=== PATIENT | female | born 1935 | race African-American/Black ===

== ENCOUNTER 2018-11-06 10:34 | Inpatient (IN) | payer MEDICARE, MEDICAID ==
[~2018-11-06] VITALS: Ht 167.6 cm; Wt 80.7 kg
[~2018-11-06 10:34] MED LIST: DOCU-150 PO
[2018-11-06] MEDS ORDERED: ONDANSETRON HCL 4MG/2ML INJ IV STA (12:20)
[2018-11-06] MEDS ORDERED: MORPHINE SULFATE 4 MG/ML CPJ (NOT FOR IM USE) IV STA (12:20)
[2018-11-06] MEDS ORDERED: DILTIAZEM HCL 5MG/ML 5ML VIAL IV ONE (12:30)
[2018-11-06 13:00] LABS: BASOPHILS % 0.7 % (0.0-2.0); EOSINOPHILS % 1.8 % (0.0-5.0); HEMATOCRIT. 37.2 % (36.0-48.0); HEMOGLOBIN. 11.8 g/dL (12.0-16.0); LYMPHOCYTES % 27.6 % (20.0-50.0); MEAN CORPUSCULAR HEMOGLOBIN 27.1 pg (28.0-32.0); MEAN CORPUSCULAR VOLUME 85.6 fL (81.0-99.0); MEAN PLATELET VOLUME 10.7 fl (7.4-10.4); MONOCYTES % 7.4 % (2.0-8.0); NEUTROPHILS % 62.5 % (40.0-76.0); PLATELET 259 x1000/uL (130-400); RED BLOOD CELL COUNT 4.34 mill/uL (4.2-5.4)
[2018-11-06 13:07] LABS: CHLORIDE 104 mEq/L (98-107)
[2018-11-06 13:11] LABS: INR 1.1; PARTIAL THROMBOPLASTIN TIME 25.2 sec (23.4-31.0); PROTHROMBIN TIME 10.8 sec (9.6-11.0)
[2018-11-06] MEDS ORDERED: POTASSIUM CHLORIDE 20MEQ TABLET SR PO ONE (13:30)
[2018-11-06] MEDS ORDERED: FUROSEMIDE 20MG/2ML VIAL IVP ONE (13:30)
[2018-11-06] MEDS ORDERED: ONDANSETRON HCL 4MG/2ML INJ IV PRN (16:30)
[2018-11-06] MEDS ORDERED: ACETAMINOPHEN 325MG TABLET PO PRN (16:30)
[2018-11-06] MEDS ORDERED: ENOXAPARIN 40MG/0.4ML SYR SUBCUT SCH (16:30)
[2018-11-06 16:50] VITALS: BP_SYST 117; BP_DIAS 80; BP_DIAS 90
[2018-11-06] MEDS ORDERED: HYDROMORPHONE HCL/PF 2MG/ML CPJ IV PRN (17:00)
[2018-11-06 18:00] VITALS: BP 132/72
[2018-11-06] MEDS ORDERED: DEXTROSE 50% WATER 50ML SYRINGE IV PRN ×3 (18:00→19:45)
[2018-11-06] MEDS: METOPROLOL TARTRATE 25MG TABLET PO SCH (18:26)
[2018-11-06] MEDS: APIXABAN 2.5 MG TABLET PO SCH (18:26)
[2018-11-06] MEDS ORDERED: OMEPRAZOLE 20MG CAPSULE EXTENDED RELEASE PO NR (18:30)
[2018-11-06] MEDS ORDERED: MELOXICAM 7.5MG TABLET PO SCH (18:30)
[2018-11-06] MEDS ORDERED: MVI, ADULT NO.1 10 ML, FOLIC ACID 1 MG, THIAMINE HCL 100 MG in SODIUM CHLORIDE 0.9% 1,0... IV NR ×4 (19:30)
[2018-11-06 20:00] VITALS: BP 154/82
[2018-11-06] MEDS: BLOOD SUGAR DIAGNOSTIC STRIP TEST SCH (20:39)
[2018-11-06] MEDS: INSULIN LISPRO 100 UNITS/ML SUBCUT SCH (20:41)
[2018-11-06] MEDS: PREGABALIN 50 MG CAPSULE PO SCH (20:42)
[2018-11-06] MEDS ORDERED: BLOOD SUGAR DIAGNOSTIC STRIP TEST SCH (21:00)
[2018-11-06] MEDS ORDERED: INSULIN LISPRO 100 UNITS/ML SUBCUT SCH (21:00)
[2018-11-07] VITALS: BP 146/95
[2018-11-07 00:51] LABS: CREATINE KINASE MB FRACTION < 1.0 ng/mL (0.5-3.6)
[2018-11-07] MEDS: INSULIN LISPRO 100 UNITS/ML SUBCUT SCH ×5 (02:00→20:00)
[2018-11-07] MEDS: BLOOD SUGAR DIAGNOSTIC STRIP TEST SCH ×4 (02:00→20:00)
[2018-11-07 04:00] VITALS: BP 133/85
[2018-11-07] MEDS: OMEPRAZOLE 20MG CAPSULE EXTENDED RELEASE PO SCH (06:39)
[2018-11-07] MEDS: APIXABAN 2.5 MG TABLET PO SCH ×2 (06:39→17:01)
[2018-11-07 08:00] VITALS: BP 107/87
[2018-11-07] MEDS: PREGABALIN 50 MG CAPSULE PO SCH ×3 (08:34→21:09)
[2018-11-07] MEDS: METOPROLOL TARTRATE 25MG TABLET PO SCH ×2 (08:35→16:25)
[2018-11-07] MEDS: DOCUSATE SODIUM 250MG CAPSULE PO SCH (08:43)
[2018-11-07 08:44] LABS: BASOPHILS % 0.5 % (0.0-2.0); EOSINOPHILS % 4.6 % (0.0-5.0); HEMATOCRIT. 36.5 % (36.0-48.0); HEMOGLOBIN. 11.4 g/dL (12.0-16.0); LYMPHOCYTES % 39.1 % (20.0-50.0); MEAN CORPUSCULAR HEMOGLOBIN 27.1 pg (28.0-32.0); MEAN CORPUSCULAR VOLUME 86.8 fL (81.0-99.0); MEAN PLATELET VOLUME 11.3 fl (7.4-10.4); NEUTROPHILS % 49.8 % (40.0-76.0); PLATELET 278 x1000/uL (130-400); RED BLOOD CELL COUNT 4.21 mill/uL (4.2-5.4); RED CELL DISTRIBUTION WIDTH 15.3 % (11.6-14.6)
[2018-11-07] MEDS ORDERED: DOCUSATE SODIUM 100MG CAPSULE PO SCH (09:00)
[2018-11-07 09:12] LABS: CHLORIDE 113 mEq/L (98-107)
[2018-11-07 09:23] LABS: CREATINE KINASE MB FRACTION 1.1 ng/mL (0.5-3.6); HDL CHOLESTEROL 43 mg/dL (40-59)
[2018-11-07 09:24] LABS: LDL CHOLESTEROL 70 mg/dL (5-100)
[2018-11-07] MEDS ORDERED: POTASSIUM CHLORIDE INJ 40 MEQ in DEXT 5% WATER 500 ML IV NR (10:00)
[2018-11-07] MEDS: SODIUM CHL 0.45% + KCL 20MEQ/L 1,000 ML IV SCH ×2 (10:08→23:20)
[2018-11-07] MEDS ORDERED: MAGNESIUM 4 G PREMIX 100 ML IV NR (11:30)
[2018-11-07 12:00] VITALS: BP 123/68
[2018-11-07 16:00] VITALS: BP 102/84
[2018-11-07] MEDS: POTASSIUM CHLORIDE 20MEQ TABLET SR PO SCH (17:02)
[2018-11-07] MEDS ORDERED: HYDROCODONE/ACETAMINOPHEN 5/325MG TABLET PO PRN (18:45)
[2018-11-07 20:00] VITALS: BP 116/79
[2018-11-08 00:22] VITALS: BP 125/92
[2018-11-08] MEDS: INSULIN LISPRO 100 UNITS/ML SUBCUT SCH ×4 (01:50→20:00)
[2018-11-08] MEDS: BLOOD SUGAR DIAGNOSTIC STRIP TEST SCH ×4 (01:51→20:00)
[2018-11-08 04:00] VITALS: BP 105/81
[2018-11-08] MEDS: APIXABAN 2.5 MG TABLET PO SCH ×2 (06:42→17:05)
[2018-11-08] MEDS: POTASSIUM CHLORIDE 20MEQ TABLET SR PO SCH (06:42)
[2018-11-08] MEDS: OMEPRAZOLE 20MG CAPSULE EXTENDED RELEASE PO SCH (06:42)
[2018-11-08 08:00] VITALS: BP 117/86
[2018-11-08] MEDS: METOPROLOL TARTRATE 25MG TABLET PO SCH ×2 (08:59→17:05)
[2018-11-08] MEDS: DOCUSATE SODIUM 250MG CAPSULE PO SCH (08:59)
[2018-11-08] MEDS ORDERED: PREGABALIN 75MG CAPSULE PO SCH (09:00)
[2018-11-08 10:47] LABS: BASOPHILS % 0.4 % (0.0-2.0); EOSINOPHILS % 2.4 % (0.0-5.0); HEMATOCRIT. 37.5 % (36.0-48.0); HEMOGLOBIN. 11.7 g/dL (12.0-16.0); LYMPHOCYTES % 31.2 % (20.0-50.0); MEAN CORPUSCULAR HEMOGLOBIN 27.2 pg (28.0-32.0); MEAN CORPUSCULAR VOLUME 86.8 fL (81.0-99.0); MEAN PLATELET VOLUME 10.6 fl (7.4-10.4); MONOCYTES % 6.1 % (2.0-8.0); NEUTROPHILS % 59.9 % (40.0-76.0); PLATELET 299 x1000/uL (130-400); RED BLOOD CELL COUNT 4.31 mill/uL (4.2-5.4)
[2018-11-08 11:13] LABS: CHLORIDE 104 mEq/L (98-107)
[2018-11-08 12:00] VITALS: BP 100/60
[2018-11-08] MEDS ORDERED: LACTULOSE 20G/30ML UDC PO PRN (15:45)
[2018-11-08] MEDS ORDERED: NA PHOS,M-B/NA PHOS,DI-BA ENEMA 118ML PR NR (15:45)
[2018-11-08 16:00] VITALS: BP 143/91
[2018-11-08] MEDS ORDERED: ZOLPIDEM TARTRATE 5MG TABLET PO PRN (20:45)
[2018-11-08] MEDS: LORAZEPAM 2MG/ML CPJ IM PRN (22:05)
[2018-11-09] VITALS (22 sets, daily range): BP systolic 95–201; BP diastolic 46–99
[2018-11-09] MEDS: INSULIN LISPRO 100 UNITS/ML SUBCUT SCH ×4 (02:00→20:00)
[2018-11-09] MEDS: BLOOD SUGAR DIAGNOSTIC STRIP TEST SCH ×4 (02:28→16:56)
[2018-11-09] MEDS: APIXABAN 2.5 MG TABLET PO SCH ×3 (05:59→23:05)
[2018-11-09] MEDS ORDERED: SODIUM CHLORIDE 0.45% 1,000 ML IV SCH (08:00)
[2018-11-09] MEDS ORDERED: DILTIAZEM HCL 5MG/ML 5ML VIAL IV PRN ×2 (08:30→12:15)
[2018-11-09] MEDS ORDERED: DILTIAZEM HCL 5MG/ML 5ML VIAL IV NR ×2 (08:30→11:17)
[2018-11-09] MEDS: DEXT 5%/0.45% NACL 1000ML 1,000 ML IV SCH ×2 (08:46→22:07)
[2018-11-09 08:53] LABS: BG BASE EXCESS -7.3 mmol/L (-2.0-2.0); BG CARBOXYHEMOGLOBIN 1.4 % (0.5-1.5); BG DEOXYHEMOGLOBIN 7.3 % (0.0-5.0); BG HCO3 ACT 15.7 mmol/L (22.0-26.0); BG METHEMOGLOBIN 0.6 % (0.0-1.5); BG OXYGEN SATURATION 92.6 % (92.0-98.5); BG OXYHEMOGLOBIN 90.7 % (94.0-97.0); BG PCO2 25.6 mmHg (35.0-45.0); BG PH 7.405 (7.350-7.450); BG PO2 66.9 mmHg (75.0-100.0); BG SAMPLE SITE LEFT BRACHIAL; BG TOTAL HEMOGLOBIN 13.3 g/dL (12.0-18.0); BG VENT MODE ROOM AIR
[2018-11-09] MEDS: METOPROLOL TARTRATE 25MG TABLET PO SCH ×3 (09:00→17:00)
[2018-11-09] MEDS: FAMOTIDINE 20MG TABLET PO SCH ×3 (09:00→17:00)
[2018-11-09] MEDS: DOCUSATE SODIUM 250MG CAPSULE PO SCH ×2 (09:00→09:01)
[2018-11-09 11:11] LABS: BASOPHILS % 0.4 % (0.0-2.0); EOSINOPHILS % 0.8 % (0.0-5.0); HEMATOCRIT. 38.5 % (36.0-48.0); HEMOGLOBIN. 12.1 g/dL (12.0-16.0); LYMPHOCYTES % 14.4 % (20.0-50.0); MEAN CORPUSCULAR HEMOGLOBIN 27.2 pg (28.0-32.0); MEAN CORPUSCULAR VOLUME 86.4 fL (81.0-99.0); MEAN PLATELET VOLUME 11.5 fl (7.4-10.4); MONOCYTES % 4.4 % (2.0-8.0); PLATELET 310 x1000/uL (130-400); RED BLOOD CELL COUNT 4.45 mill/uL (4.2-5.4); RED CELL DISTRIBUTION WIDTH 15.1 % (11.6-14.6)
[2018-11-09] MEDS ORDERED: IPRATROPIUM/ALBUTEROL 0.5-3(2.5)MG/3ML NEB HHN SCH (12:00)
[2018-11-09 12:01] LABS: ETHANOL BLOOD < 10 mg/dL; T4 FREE 1.59 ng/dL (0.76-1.46)
[2018-11-09 12:06] LABS: FOLIC ACID (FOLATE) SERUM >20 ng/mL ng/mL (>5.38)
[2018-11-09 12:16] LABS: VITAMIN B12 SERUM >2000 pg/mL pg/mL (211-911)
[2018-11-09] MEDS ORDERED: DILTIAZEM HCL 125 MG in DEXT 5% WATER 100 ML IV PRN (12:30)
[2018-11-09] MEDS: BUDESONIDE 0.25MG/2ML NEB HHN SCH ×2 (13:20→20:50)
[2018-11-09] MEDS ORDERED: DILTIAZEM HCL 125 MG in DEXTROSE 5% WATER 125 ML IV SCH (13:30)
[2018-11-09] MEDS ORDERED: NALOXONE HCL 0.4 MG/ML 1ML VIAL IV NR ×2 (13:45→14:00)
[2018-11-09] MEDS ORDERED: IPRATROPIUM BROMIDE (0.02%) 0.5MG/2.5ML NEB ONE (14:08)
[2018-11-09] MEDS ORDERED: IPRATROPIUM BROMIDE (0.02%) 0.5MG/2.5ML NEB HHN ONE (14:15)
[2018-11-09 14:36] LABS: BG BASE EXCESS -5.4 mmol/L (-2.0-2.0); BG CARBOXYHEMOGLOBIN 1.4 % (0.5-1.5); BG DEOXYHEMOGLOBIN 5.8 % (0.0-5.0); BG FRACTION INSPIRED OXYGEN 28; BG HCO3 ACT 18.9 mmol/L (22.0-26.0); BG METHEMOGLOBIN 0.8 % (0.0-1.5); BG OXYGEN SATURATION 94.1 % (92.0-98.5); BG PCO2 33.2 mmHg (35.0-45.0); BG PH 7.374 (7.350-7.450); BG PO2 77.6 mmHg (75.0-100.0); BG SAMPLE SITE LEFT BRACHIAL; BG TOTAL HEMOGLOBIN 12.6 g/dL (12.0-18.0); BG VENT MODE NASAL CANNULA
[2018-11-09 15:21] LABS: *AMPHETAMINES SCREEN URINE NEGATIVE (NEGATIVE); *BARBITURATES SCREEN URINE NEGATIVE (NEGATIVE); *BENZODIAZEPINES SCREEN URINE NEGATIVE (NEGATIVE); *COCAINE SCREEN URINE NEGATIVE (NEGATIVE); METHADONE URINE SCREEN NEGATIVE (NEGATIVE)
[2018-11-09 15:22] LABS: CANNABINOID URINE SCREEN NEGATIVE (NEGATIVE); OPIATES URINE SCREEN PRESUMTIVE POSITIVE (NEGATIVE); PHENCYCLIDINE URINE SCREEN NEGATIVE (NEGATIVE)
[2018-11-09] MEDS: IPRATROPIUM/ALBUTEROL 0.5-3(2.5)MG/3ML NEB HHN PRN (16:42)
[2018-11-09 17:00] LABS: CHLORIDE 102 mEq/L (98-107)
[2018-11-09] MEDS ORDERED: FUROSEMIDE 40MG/4ML VIAL IVP NR (18:30)
[2018-11-09] MEDS ORDERED: METHYLPREDNISOLONE SOD SUCC 40 MG/ML VIAL IV NR (18:30)
[2018-11-09] MEDS: LACTULOSE 20G/30ML UDC PO SCH (20:58)
[2018-11-10] VITALS (12 sets, daily range): BP systolic 125–173; BP diastolic 58–99
[2018-11-10] MEDS: BLOOD SUGAR DIAGNOSTIC STRIP TEST SCH ×4 (02:00→21:00)
[2018-11-10] MEDS: INSULIN LISPRO 100 UNITS/ML SUBCUT SCH ×5 (03:04→21:00)
[2018-11-10 04:40] LABS: CLARITY URINE CLOUDY (CLEAR); COLOR URINE YELLOW (YELLOW); KETONES URINE NEGATIVE (NEGATIVE); LEUKOCYTE ESTERASE URINE 1+ (NEGATIVE); NITRITE URINE NEGATIVE (NEGATIVE); OCCULT BLOOD URINE 2+ (NEGATIVE); PROTEIN URINE NEGATIVE (NEGATIVE); SPECIFIC GRAVITY URINE 1.007 (1.005-1.030); UROBILINOGEN URINE 0.2 E.U./dL (0.2-1.0)
[2018-11-10] MEDS: LACTULOSE 20G/30ML UDC PO SCH ×2 (06:22→13:34)
[2018-11-10] MEDS: APIXABAN 2.5 MG TABLET PO SCH (06:22)
[2018-11-10] MEDS: BUDESONIDE 0.25MG/2ML NEB HHN SCH ×2 (07:50→21:39)
[2018-11-10] MEDS: DEXT 5%/0.45% NACL 1000ML 1,000 ML IV SCH (09:05)
[2018-11-10] MEDS: FAMOTIDINE 20MG TABLET PO SCH ×2 (09:06→17:00)
[2018-11-10] MEDS: DOCUSATE SODIUM 250MG CAPSULE PO SCH (09:06)
[2018-11-10] MEDS: METOPROLOL TARTRATE 25MG TABLET PO SCH ×2 (10:08→17:00)
[2018-11-10 10:20] LABS: BASOPHILS % 0.4 % (0.0-2.0); HEMOGLOBIN. 12.4 g/dL (12.0-16.0); LYMPHOCYTES % 10.2 % (20.0-50.0); MEAN CORPUSCULAR HEMOGLOBIN 27.3 pg (28.0-32.0); MEAN CORPUSCULAR VOLUME 85.7 fL (81.0-99.0); MEAN PLATELET VOLUME 11.1 fl (7.4-10.4); MONOCYTES % 3.4 % (2.0-8.0); PLATELET 311 x1000/uL (130-400); RED BLOOD CELL COUNT 4.55 mill/uL (4.2-5.4); RED CELL DISTRIBUTION WIDTH 15.1 % (11.6-14.6)
[2018-11-10 10:25] LABS: CHLORIDE 101 mEq/L (98-107)
[2018-11-10] MEDS ORDERED: PIPERACILLIN/TAZ 3.375G PREMIX 50 ML IV NR (11:00)
[2018-11-10 13:17] LABS: HEPATITIS B SURFACE ANTIGEN NEGATIVE
[2018-11-10] MEDS: IPRATROPIUM/ALBUTEROL 0.5-3(2.5)MG/3ML NEB HHN PRN (13:19)
[2018-11-10 13:47] LABS: HEPATITIS A AB IGM NEGATIVE (NEGATIVE)
[2018-11-10 14:28] LABS: INR 1.3; PARTIAL THROMBOPLASTIN TIME 25.5 sec (23.4-31.0); PROTHROMBIN TIME 13.4 sec (9.6-11.0)
[2018-11-10] MEDS: APIXABAN 5 MG TABLET PO SCH (17:00)
[2018-11-11] VITALS (10 sets, daily range): BP systolic 131–162; BP diastolic 72–99
[2018-11-11] MEDS: APIXABAN 5 MG TABLET PO SCH ×2 (00:03→14:35)
[2018-11-11] MEDS: LORAZEPAM 2MG/ML CPJ IM PRN ×2 (00:57→18:13)
[2018-11-11] MEDS: DEXT 5%/0.45% NACL 1000ML 1,000 ML IV SCH ×2 (01:00→15:02)
[2018-11-11] MEDS: BLOOD SUGAR DIAGNOSTIC STRIP TEST SCH ×4 (05:50→21:00)
[2018-11-11] MEDS: INSULIN LISPRO 100 UNITS/ML SUBCUT SCH ×4 (05:50→23:34)
[2018-11-11 06:33] LABS: BASOPHILS % 0.4 % (0.0-2.0); EOSINOPHILS % 0.2 % (0.0-5.0); HEMATOCRIT. 37.6 % (36.0-48.0); HEMOGLOBIN. 12.2 g/dL (12.0-16.0); MEAN CORPUSCULAR VOLUME 86.5 fL (81.0-99.0); MEAN PLATELET VOLUME 10.8 fl (7.4-10.4); MONOCYTES % 6.9 % (2.0-8.0); NEUTROPHILS % 68.5 % (40.0-76.0); PLATELET 306 x1000/uL (130-400); RED BLOOD CELL COUNT 4.35 mill/uL (4.2-5.4); RED CELL DISTRIBUTION WIDTH 15.2 % (11.6-14.6)
[2018-11-11 06:50] LABS: CHLORIDE 103 mEq/L (98-107)
[2018-11-11] MEDS ORDERED: LACTULOSE 20G/30ML UDC PO NR (08:15)
[2018-11-11 08:41] LABS: BG BASE EXCESS 0.4 mmol/L (-2.0-2.0); BG CARBOXYHEMOGLOBIN 0.9 % (0.5-1.5); BG DEOXYHEMOGLOBIN 7.2 % (0.0-5.0); BG FRACTION INSPIRED OXYGEN 21; BG HCO3 ACT 25.9 mmol/L (22.0-26.0); BG METHEMOGLOBIN 0.2 % (0.0-1.5); BG OXYGEN SATURATION 92.7 % (92.0-98.5); BG OXYHEMOGLOBIN 91.7 % (94.0-97.0); BG PCO2 45.3 mmHg (35.0-45.0); BG PH 7.375 (7.350-7.450); BG PO2 68.5 mmHg (75.0-100.0); BG SAMPLE SITE RIGHT RADIAL; BG VENT MODE ROOM AIR
[2018-11-11] MEDS ORDERED: GENTAMICIN SULF 40MG/ML 2ML VIAL ONE (09:16)
[2018-11-11] MEDS ORDERED: FENTANYL CITRATE/PF 50MCG/ML 2ML VIAL ONE ×2 (09:16→10:33)
[2018-11-11] MEDS ORDERED: MIDAZOLAM HCL 2 MG/2 ML VIAL ONE (09:16)
[2018-11-11] MEDS ORDERED: IOHEXOL-300 100 ML BOTTLE ONE (09:17)
[2018-11-11] MEDS ORDERED: LIDOCAINE HCL 1% 20ML VIAL (Pyxis) INJ ONE (09:18)
[2018-11-11] MEDS ORDERED: GENTAMICIN/NS IRRIGATION 500 ML IR ONE (09:18)
[2018-11-11] MEDS ORDERED: CEFAZOLIN 1000MG PREMIX 100 ML IV ONE (09:19)
[2018-11-11] MEDS ORDERED: DIPHENHYDRAMINE 50MG/ML VIAL ONE (10:30)
[2018-11-11] MEDS ORDERED: HYDROCODONE/ACETAMINOPHEN 5/325MG TABLET PO PRN (11:30)
[2018-11-11] MEDS: BUDESONIDE 0.25MG/2ML NEB HHN SCH ×2 (12:21→21:30)
[2018-11-11] MEDS ORDERED: NALOXONE HCL 0.4 MG/ML 1ML VIAL IV SCH (14:00)
[2018-11-11] MEDS: DOCUSATE SODIUM 250MG CAPSULE PO SCH (14:35)
[2018-11-11] MEDS: PIPERACILLIN/TAZ 3.375G PREMIX 50 ML IV SCH ×2 (14:36→17:53)
[2018-11-11] MEDS: METOPROLOL TARTRATE 25MG TABLET PO SCH ×2 (14:37→17:52)
[2018-11-11] MEDS: FAMOTIDINE 20MG TABLET PO SCH ×2 (14:37→17:52)
[2018-11-11 14:44] LABS: CREATINE KINASE 139 IU/L (26-192)
[2018-11-12] VITALS (10 sets, daily range): BP systolic 138–164; BP diastolic 75–104
[2018-11-12] MEDS: DEXT 5%/0.45% NACL 1000ML 1,000 ML IV SCH ×2 (02:33→15:43)
[2018-11-12] MEDS: LORAZEPAM 2MG/ML CPJ IM PRN (02:33)
[2018-11-12] MEDS: PIPERACILLIN/TAZ 3.375G PREMIX 50 ML IV SCH ×3 (02:33→17:41)
[2018-11-12 06:19] LABS: BASOPHILS % 1.1 % (0.0-2.0); EOSINOPHILS % 2.4 % (0.0-5.0); HEMATOCRIT. 34.7 % (36.0-48.0); HEMOGLOBIN. 11.1 g/dL (12.0-16.0); LYMPHOCYTES % 23.4 % (20.0-50.0); MEAN CORPUSCULAR HEMOGLOBIN 27.6 pg (28.0-32.0); MEAN CORPUSCULAR VOLUME 86.1 fL (81.0-99.0); MEAN PLATELET VOLUME 10.5 fl (7.4-10.4); MONOCYTES % 9.5 % (2.0-8.0); NEUTROPHILS % 63.6 % (40.0-76.0); PLATELET 257 x1000/uL (130-400); RED BLOOD CELL COUNT 4.03 mill/uL (4.2-5.4); RED CELL DISTRIBUTION WIDTH 15.1 % (11.6-14.6)
[2018-11-12 06:33] LABS: CHLORIDE 105 mEq/L (98-107)
[2018-11-12] MEDS: BLOOD SUGAR DIAGNOSTIC STRIP TEST SCH ×4 (06:51→21:00)
[2018-11-12] MEDS ORDERED: BUDESONIDE 0.5MG/2ML NEB ONE ×2 (07:46→12:26)
[2018-11-12] MEDS: BUDESONIDE 0.25MG/2ML NEB HHN SCH ×2 (09:00→20:16)
[2018-11-12] MEDS ORDERED: DILTIAZEM HCL 5MG/ML 5ML VIAL IV NR (10:15)
[2018-11-12] MEDS ORDERED: DILTIAZEM HCL 5MG/ML 5ML VIAL IV PRN (10:15)
[2018-11-12] MEDS: DOCUSATE SODIUM 250MG CAPSULE PO SCH (10:15)
[2018-11-12] MEDS: FAMOTIDINE 20MG TABLET PO SCH (10:16)
[2018-11-12] MEDS: IPRATROPIUM/ALBUTEROL 0.5-3(2.5)MG/3ML NEB HHN PRN ×2 (10:26→12:54)
[2018-11-12] MEDS: METOPROLOL TARTRATE 25MG TABLET PO SCH ×2 (10:38→17:18)
[2018-11-12] MEDS: DILTIAZEM HCL 60MG TABLET PO SCH ×3 (10:39→22:44)
[2018-11-12] MEDS: APIXABAN 2.5 MG TABLET PO SCH ×2 (10:41→17:19)
[2018-11-12] MEDS: INSULIN LISPRO 100 UNITS/ML SUBCUT SCH ×4 (10:43→21:00)
[2018-11-12] MEDS: LACTULOSE 20G/30ML UDC PO SCH ×2 (12:49→22:44)
[2018-11-12] MEDS: MUPIROCIN 2% OINT 22GM NS SCH (21:00)
[2018-11-13] VITALS (8 sets, daily range): BP systolic 134–164; BP diastolic 74–89
[2018-11-13] MEDS: PIPERACILLIN/TAZ 3.375G PREMIX 50 ML IV SCH ×3 (02:00→17:50)
[2018-11-13] MEDS: DEXT 5%/0.45% NACL 1000ML 1,000 ML IV SCH ×2 (05:16→17:51)
[2018-11-13] MEDS: DILTIAZEM HCL 60MG TABLET PO SCH ×3 (05:24→15:10)
[2018-11-13] MEDS: LACTULOSE 20G/30ML UDC PO SCH ×2 (05:24→14:00)
[2018-11-13] MEDS: BLOOD SUGAR DIAGNOSTIC STRIP TEST SCH ×3 (05:25→17:31)
[2018-11-13] MEDS: INSULIN LISPRO 100 UNITS/ML SUBCUT SCH ×3 (05:25→17:31)
[2018-11-13] MEDS ORDERED: FAMOTIDINE 20MG TABLET PO SCH (09:00)
[2018-11-13] MEDS: DOCUSATE SODIUM 250MG CAPSULE PO SCH (09:00)
[2018-11-13] MEDS: MUPIROCIN 2% OINT 22GM NS SCH (09:26)
[2018-11-13] MEDS: APIXABAN 2.5 MG TABLET PO SCH ×2 (09:27→17:50)
[2018-11-13] MEDS: METOPROLOL TARTRATE 25MG TABLET PO SCH ×2 (09:27→17:50)
[2018-11-13 15:42] LABS: CHLORIDE 102 mEq/L (98-107)
[2018-11-13 15:45] LABS: BASOPHILS % 0.8 % (0.0-2.0); EOSINOPHILS % 2.9 % (0.0-5.0); HEMATOCRIT. 37.5 % (36.0-48.0); HEMOGLOBIN. 11.7 g/dL (12.0-16.0); MEAN CORPUSCULAR HEMOGLOBIN 27.1 pg (28.0-32.0); MEAN CORPUSCULAR VOLUME 87.1 fL (81.0-99.0); MEAN PLATELET VOLUME 10.6 fl (7.4-10.4); MONOCYTES % 8.9 % (2.0-8.0); NEUTROPHILS % 65.4 % (40.0-76.0); PLATELET 287 x1000/uL (130-400); RED CELL DISTRIBUTION WIDTH 15.2 % (11.6-14.6)
== END 2018-11-13 20:10 | DRG 242 ==
LOC: ER 10:45 → 8WST 13:31 → ENRESERV 15:31 → 3WST 11-09 13:30
PROVIDERS: ADMIT Internal Medicine Geriatric Medicine; ATTEND Internal Medicine Geriatric Medicine
PROC: 0JH604Z Insertion of Pacemaker, Single Chamber into Chest Subcutaneous Tissue and Fascia, Open Approach (ICD-10-PCS; principal; 2018-11-11)
PROC: 02HK3JZ Insertion of Pacemaker Lead into Right Ventricle, Percutaneous Approach (ICD-10-PCS; 2018-11-11)
PROC: B5171ZZ Fluoroscopy of Left Subclavian Vein using Low Osmolar Contrast (ICD-10-PCS; 2018-11-11)
DX: I49.5 Sick sinus syndrome (principal); G92 Toxic encephalopathy; I50.21 Acute systolic (congestive) heart failure; I48.1 Persistent atrial fibrillation; E44.1 Mild protein-calorie malnutrition; E72.20 Disorder of urea cycle metabolism, unspecified; E87.1 Hypo-osmolality and hyponatremia; K80.10 Calculus of gallbladder with chronic cholecystitis without obstruction; N17.9 Acute kidney failure, unspecified; M48.00 Spinal stenosis, site unspecified; E87.6 Hypokalemia; E83.42 Hypomagnesemia; E78.00 Pure hypercholesterolemia, unspecified; E87.5 Hyperkalemia; I11.0 Hypertensive heart disease with heart failure; I25.10 Atherosclerotic heart disease of native coronary artery without angina pectoris; E11.36 Type 2 diabetes mellitus with diabetic cataract; I44.30 Unspecified atrioventricular block; J45.909 Unspecified asthma, uncomplicated; K72.90 Hepatic failure, unspecified without coma; Z96.659 Presence of unspecified artificial knee joint; E11.51 Type 2 diabetes mellitus with diabetic peripheral angiopathy without gangrene; D63.8 Anemia in other chronic diseases classified elsewhere; M16.11 Unilateral primary osteoarthritis, right hip; G90.8 Other disorders of autonomic nervous system; Z88.1 Allergy status to other antibiotic agents; Z88.2 Allergy status to sulfonamides; Z90.710 Acquired absence of both cervix and uterus; Z98.42 Cataract extraction status, left eye; Z98.41 Cataract extraction status, right eye; Z91.041 Radiographic dye allergy status; Z91.013 Allergy to seafood; Z68.28 Body mass index [BMI] 28.0-28.9, adult; Z86.73 Personal history of transient ischemic attack (TIA), and cerebral infarction without residual deficits; Z79.01 Long term (current) use of anticoagulants
CPT/HCPCS: 33207; 36415; 36600; 71045; 72100; 73502; 75820; 76700; 78227; 80048; 80061; 80076; 80305; 80320; 82140; 82248; 82375; 82550; 82553; 82607; 82746; 82805; 82962; 83036; 83735; 83880; 84439; 84443; 84481; 84484; 86705; 86709; 86803; 87340; 92610; 93005; 93306; 93880; 93970; 94640; 96374; 97162; 97164; 99285; A6261; A9537; C1786; C1892; C1893; C1898; J0690; J1170; J1200; J1580; J1815; J1940; J2060; J2250; J2270; J2310; J2405; J2543; J2920; J3010; J3411; J3475; J3480; J3490; J7030; J7050; J7060; J7620; J7626; L3670; Q9967; G0480

== ENCOUNTER 2018-11-13 20:10 | Inpatient (IN) | payer MEDICARE, MEDICAID ==
[~2018-11-13] VITALS: Ht 167 cm; Wt 83.6 kg
[2018-11-13 20:10] VITALS: BP 140/89
[2018-11-13 20:15] VITALS: BP 140/89
[2018-11-13] MEDS ORDERED: ONDANSETRON HCL 4MG/2ML INJ IV PRN (22:15)
[2018-11-13] MEDS ORDERED: LORAZEPAM 2MG/ML CPJ IM PRN (22:15)
[2018-11-13] MEDS ORDERED: ACETAMINOPHEN 325MG TABLET PO PRN (22:15)
[2018-11-13] MEDS ORDERED: IPRATROPIUM/ALBUTEROL 0.5-3(2.5)MG/3ML NEB HHN PRN (22:15)
[2018-11-13] MEDS ORDERED: DEXTROSE 50% WATER 50ML SYRINGE IV PRN ×2 (22:15)
[2018-11-13] MEDS ORDERED: HYDROCODONE/ACETAMINOPHEN 5/325MG TABLET PO PRN (22:15)
[2018-11-13] MEDS ORDERED: DILTIAZEM HCL 5MG/ML 5ML VIAL IV PRN (22:45)
[2018-11-13] MEDS ORDERED: ZOLPIDEM TARTRATE 5MG TABLET PO PRN (23:00)
[2018-11-14] MEDS: MUPIROCIN 2% OINT 22GM NS SCH ×3 (00:40→21:15)
[2018-11-14] MEDS: DILTIAZEM HCL 60MG TABLET PO SCH ×4 (00:45→17:21)
[2018-11-14] MEDS: BLOOD SUGAR DIAGNOSTIC STRIP TEST SCH ×5 (00:45→21:16)
[2018-11-14] MEDS: INSULIN LISPRO 100 UNITS/ML SUBCUT SCH ×5 (00:45→21:34)
[2018-11-14] MEDS: LACTULOSE 20G/30ML UDC PO SCH ×4 (00:46→21:17)
[2018-11-14] MEDS: DEXT 5%/0.45% NACL 1000ML 1,000 ML IV SCH ×3 (00:46→21:10)
[2018-11-14] MEDS: PIPERACILLIN/TAZ 3.375G PREMIX 50 ML IV SCH ×3 (02:56→17:14)
[2018-11-14 07:46] LABS: BASOPHILS % 0.7 % (0.0-2.0); EOSINOPHILS % 2.3 % (0.0-5.0); HEMATOCRIT. 42.3 % (36.0-48.0); HEMOGLOBIN. 13.3 g/dL (12.0-16.0); LYMPHOCYTES % 25.1 % (20.0-50.0); MEAN CORPUSCULAR HEMOGLOBIN 27.2 pg (28.0-32.0); MEAN CORPUSCULAR VOLUME 86.4 fL (81.0-99.0); MEAN PLATELET VOLUME 10.5 fl (7.4-10.4); MONOCYTES % 7.9 % (2.0-8.0); PLATELET 320 x1000/uL (130-400)
[2018-11-14 07:56] LABS: CHLORIDE 97 mEq/L (98-107)
[2018-11-14 07:58] VITALS: BP 122/89
[2018-11-14] MEDS ORDERED: PREGABALIN 75MG CAPSULE PO SCH ×2 (09:00)
[2018-11-14] MEDS: DOCUSATE SODIUM 250MG CAPSULE PO SCH (09:05)
[2018-11-14] MEDS: METOPROLOL TARTRATE 25MG TABLET PO SCH ×2 (09:06→21:16)
[2018-11-14] MEDS: FAMOTIDINE 20MG TABLET PO SCH (09:06)
[2018-11-14] MEDS: APIXABAN 2.5 MG TABLET PO SCH ×2 (09:07→17:14)
[2018-11-14] MEDS: POTASSIUM CHLORIDE 20MEQ TABLET SR PO SCH ×2 (10:24→21:16)
[2018-11-14] MEDS ORDERED: MAGNESIUM 2 G PREMIX 50 ML IV NR (15:00)
[2018-11-14 20:00] VITALS: BP 103/77
[2018-11-14 22:10] VITALS: BP 158/90
[2018-11-15] MEDS: DILTIAZEM HCL 60MG TABLET PO SCH ×5 (00:42→23:47)
[2018-11-15] MEDS: PIPERACILLIN/TAZ 3.375G PREMIX 50 ML IV SCH ×3 (01:02→17:00)
[2018-11-15] MEDS: LACTULOSE 20G/30ML UDC PO SCH ×2 (06:00→13:34)
[2018-11-15] MEDS: BLOOD SUGAR DIAGNOSTIC STRIP TEST SCH ×4 (06:09→21:00)
[2018-11-15] MEDS: INSULIN LISPRO 100 UNITS/ML SUBCUT SCH ×4 (06:25→21:28)
[2018-11-15 07:41] VITALS: BP 141/72
[2018-11-15 07:56] LABS: CHLORIDE 97 mEq/L (98-107)
[2018-11-15 08:24] LABS: PHOSPHORUS 2.5 mg/dL (2.5-4.9)
[2018-11-15] MEDS: POTASSIUM CHLORIDE 20MEQ TABLET SR PO SCH ×2 (08:40→21:09)
[2018-11-15] MEDS: FAMOTIDINE 20MG TABLET PO SCH (08:40)
[2018-11-15] MEDS: METOPROLOL TARTRATE 25MG TABLET PO SCH ×2 (08:40→21:09)
[2018-11-15] MEDS: DOCUSATE SODIUM 250MG CAPSULE PO SCH (08:41)
[2018-11-15] MEDS: APIXABAN 2.5 MG TABLET PO SCH ×2 (08:41→16:36)
[2018-11-15] MEDS: MUPIROCIN 2% OINT 22GM NS SCH ×2 (09:00→21:29)
[2018-11-15] MEDS: DEXT 5%/0.45% NACL 1000ML 1,000 ML IV SCH (14:42)
[2018-11-15] MEDS ORDERED: GLIMEPIRIDE 1MG TABLET PO NR (17:00)
[2018-11-15 20:00] VITALS: BP 116/57
[2018-11-16] MEDS: PIPERACILLIN/TAZ 3.375G PREMIX 50 ML IV SCH ×3 (02:30→17:33)
[2018-11-16] MEDS: DEXT 5%/0.45% NACL 1000ML 1,000 ML IV SCH (04:46)
[2018-11-16] MEDS: INSULIN LISPRO 100 UNITS/ML SUBCUT SCH ×4 (06:30→22:07)
[2018-11-16] MEDS: DILTIAZEM HCL 60MG TABLET PO SCH ×4 (06:37→23:04)
[2018-11-16] MEDS: GLIMEPIRIDE 1MG TABLET PO SCH (06:37)
[2018-11-16] MEDS: BLOOD SUGAR DIAGNOSTIC STRIP TEST SCH ×4 (06:38→21:00)
[2018-11-16 07:31] LABS: CHLORIDE 100 mEq/L (98-107)
[2018-11-16 07:41] LABS: PHOSPHORUS 2.5 mg/dL (2.5-4.9)
[2018-11-16 07:53] LABS: BASOPHILS % 0.3 % (0.0-2.0); EOSINOPHILS % 1.7 % (0.0-5.0); HEMATOCRIT. 37.8 % (36.0-48.0); HEMOGLOBIN. 11.9 g/dL (12.0-16.0); LYMPHOCYTES % 20.8 % (20.0-50.0); MEAN CORPUSCULAR HEMOGLOBIN 26.9 pg (28.0-32.0); MEAN CORPUSCULAR VOLUME 85.4 fL (81.0-99.0); MEAN PLATELET VOLUME 10.1 fl (7.4-10.4); MONOCYTES % 7.3 % (2.0-8.0); NEUTROPHILS % 69.9 % (40.0-76.0); PLATELET 312 x1000/uL (130-400); RED BLOOD CELL COUNT 4.43 mill/uL (4.2-5.4); RED CELL DISTRIBUTION WIDTH 15.2 % (11.6-14.6)
[2018-11-16 07:59] VITALS: BP 131/80
[2018-11-16] MEDS: DOCUSATE SODIUM 250MG CAPSULE PO SCH ×2 (08:20→08:30)
[2018-11-16] MEDS: POTASSIUM CHLORIDE 20MEQ TABLET SR PO SCH ×2 (08:20→21:44)
[2018-11-16] MEDS: APIXABAN 2.5 MG TABLET PO SCH ×2 (08:20→17:33)
[2018-11-16] MEDS: METOPROLOL TARTRATE 25MG TABLET PO SCH ×2 (08:21→21:43)
[2018-11-16] MEDS: FAMOTIDINE 20MG TABLET PO SCH (08:21)
[2018-11-16] MEDS: MUPIROCIN 2% OINT 22GM NS SCH ×2 (08:26→21:44)
[2018-11-16] MEDS ORDERED: APIXABAN 2.5 MG TABLET PO SCH (09:00)
[2018-11-16 20:00] VITALS: BP 127/66
[2018-11-17] MEDS: PIPERACILLIN/TAZ 3.375G PREMIX 50 ML IV SCH ×3 (02:23→18:18)
[2018-11-17] MEDS: BLOOD SUGAR DIAGNOSTIC STRIP TEST SCH ×4 (06:30→21:01)
[2018-11-17] MEDS: INSULIN LISPRO 100 UNITS/ML SUBCUT SCH ×4 (06:30→21:08)
[2018-11-17] MEDS: GLIMEPIRIDE 1MG TABLET PO SCH (06:51)
[2018-11-17] MEDS: DILTIAZEM HCL 60MG TABLET PO SCH ×3 (06:52→17:44)
[2018-11-17 07:59] VITALS: BP 114/90
[2018-11-17] MEDS: DOCUSATE SODIUM 250MG CAPSULE PO SCH (08:53)
[2018-11-17] MEDS: MUPIROCIN 2% OINT 22GM NS SCH ×2 (08:53→21:00)
[2018-11-17] MEDS: POTASSIUM CHLORIDE 20MEQ TABLET SR PO SCH ×2 (08:54→21:00)
[2018-11-17] MEDS: METOPROLOL TARTRATE 25MG TABLET PO SCH ×2 (08:54→21:00)
[2018-11-17] MEDS: FAMOTIDINE 20MG TABLET PO SCH (08:54)
[2018-11-17] MEDS: APIXABAN 2.5 MG TABLET PO SCH ×2 (08:54→17:43)
[2018-11-17] MEDS ORDERED: DOXA1TAB2 PO (16:57)
[2018-11-17] MEDS ORDERED: LOSA50TA41 MT (16:57)
[2018-11-17] MEDS ORDERED: METF-416 MT (16:57)
[2018-11-17] MEDS ORDERED: APIX2.5T MT (16:57)
[2018-11-17] MEDS ORDERED: ALLO100T MT (16:57)
[2018-11-17] MEDS ORDERED: DILT120C11 MT (16:57)
[2018-11-17] MEDS ORDERED: SAXA5TAB MT (16:57)
[2018-11-17] MEDS ORDERED: GLIM2TAB2 PO (16:57)
[2018-11-17] MEDS ORDERED: SPIR25TA MT (16:57)
[2018-11-17 20:00] VITALS: BP 123/64
[2018-11-18] MEDS: DILTIAZEM HCL 60MG TABLET PO SCH ×5 (00:03→23:12)
[2018-11-18] MEDS: PIPERACILLIN/TAZ 3.375G PREMIX 50 ML IV SCH ×3 (01:00→17:05)
[2018-11-18] MEDS: INSULIN LISPRO 100 UNITS/ML SUBCUT SCH ×4 (06:28→22:08)
[2018-11-18] MEDS: BLOOD SUGAR DIAGNOSTIC STRIP TEST SCH ×4 (06:28→21:53)
[2018-11-18] MEDS: GLIMEPIRIDE 1MG TABLET PO SCH (06:28)
[2018-11-18 08:00] VITALS: BP 161/91
[2018-11-18] MEDS: LACTULOSE 20G/30ML UDC PO PRN ×2 (08:41→22:02)
[2018-11-18] MEDS: DOCUSATE SODIUM 250MG CAPSULE PO SCH (08:42)
[2018-11-18] MEDS: FAMOTIDINE 20MG TABLET PO SCH (08:42)
[2018-11-18] MEDS: APIXABAN 2.5 MG TABLET PO SCH ×2 (08:42→16:41)
[2018-11-18] MEDS: METOPROLOL TARTRATE 25MG TABLET PO SCH ×2 (08:42→21:53)
[2018-11-18] MEDS: POTASSIUM CHLORIDE 20MEQ TABLET SR PO SCH ×2 (08:42→21:53)
[2018-11-18] MEDS ORDERED: CLONIDINE 0.2MG TABLET PO PRN (15:30)
[2018-11-18 20:00] VITALS: BP 126/78
[2018-11-19] MEDS: INSULIN LISPRO 100 UNITS/ML SUBCUT SCH ×2 (06:30→12:25)
[2018-11-19] MEDS: BLOOD SUGAR DIAGNOSTIC STRIP TEST SCH ×2 (06:43→11:26)
[2018-11-19] MEDS: DILTIAZEM HCL 60MG TABLET PO SCH ×2 (06:44→12:09)
[2018-11-19] MEDS ORDERED: GLIMEPIRIDE 1MG TABLET PO SCH (07:00)
[2018-11-19 07:18] LABS: CHLORIDE 104 mEq/L (98-107)
[2018-11-19 07:21] LABS: HEMATOCRIT. 41.8 % (36.0-48.0); HEMOGLOBIN. 13.3 g/dL (12.0-16.0); LYMPHOCYTES % 31.3 % (20.0-50.0); MEAN CORPUSCULAR HEMOGLOBIN 27.2 pg (28.0-32.0); MEAN CORPUSCULAR VOLUME 85.4 fL (81.0-99.0); MEAN PLATELET VOLUME 9.9 fl (7.4-10.4); NEUTROPHILS % 55.7 % (40.0-76.0); PLATELET 339 x1000/uL (130-400); RED BLOOD CELL COUNT 4.89 mill/uL (4.2-5.4); RED CELL DISTRIBUTION WIDTH 15.1 % (11.6-14.6)
[2018-11-19 08:04] VITALS: BP 154/96
[2018-11-19] MEDS: APIXABAN 2.5 MG TABLET PO SCH (08:58)
[2018-11-19] MEDS: FAMOTIDINE 20MG TABLET PO SCH (08:58)
[2018-11-19] MEDS: DOCUSATE SODIUM 250MG CAPSULE PO SCH (08:58)
[2018-11-19] MEDS: METOPROLOL TARTRATE 25MG TABLET PO SCH (08:58)
[2018-11-19] MEDS ORDERED: ATORVASTATIN CALCIUM 10MG TABLET PO SCH (09:00)
[2018-11-19 10:30] VITALS: BP 134/80
== END 2018-11-19 15:25 | disposition home health service (06) | DRG 91 ==
PROVIDERS: ADMIT Psychiatry & Neurology Neurology; ATTEND Internal Medicine Geriatric Medicine
DX: G92 Toxic encephalopathy (principal); I50.21 Acute systolic (congestive) heart failure; E87.1 Hypo-osmolality and hyponatremia; E44.1 Mild protein-calorie malnutrition; N17.9 Acute kidney failure, unspecified; M16.11 Unilateral primary osteoarthritis, right hip; E11.59 Type 2 diabetes mellitus with other circulatory complications; E87.6 Hypokalemia; I48.2 Chronic atrial fibrillation; M48.00 Spinal stenosis, site unspecified; E83.42 Hypomagnesemia; I49.5 Sick sinus syndrome; I11.0 Hypertensive heart disease with heart failure; D64.9 Anemia, unspecified; D72.829 Elevated white blood cell count, unspecified; E78.00 Pure hypercholesterolemia, unspecified; E87.5 Hyperkalemia; F06.8 Other specified mental disorders due to known physiological condition; F41.9 Anxiety disorder, unspecified; I25.10 Atherosclerotic heart disease of native coronary artery without angina pectoris; J44.9 Chronic obstructive pulmonary disease, unspecified; K75.9 Inflammatory liver disease, unspecified; K80.20 Calculus of gallbladder without cholecystitis without obstruction; Z86.73 Personal history of transient ischemic attack (TIA), and cerebral infarction without residual deficits; Z95.0 Presence of cardiac pacemaker; Z68.30 Body mass index [BMI] 30.0-30.9, adult; Z90.710 Acquired absence of both cervix and uterus; G90.8 Other disorders of autonomic nervous system; Z22.322 Carrier or suspected carrier of Methicillin resistant Staphylococcus aureus
CPT/HCPCS: 36415; 80048; 80076; 82140; 82248; 82962; 83735; 84100; 92523; 93005; 97110; 97116; 97162; 97166; 97530; 97535; J1815; J2543; J3475; J7040; J7050

== ENCOUNTER 2019-02-09 11:20 | Inpatient (IN) | payer MEDICARE, MEDICAID ==
[~2019-02-09] VITALS: Ht 167.6 cm; Wt 73.5 kg
[~2019-02-09 11:20] MED LIST changes: +ALLO100T MT; +APIX2.5T MT; +DILT120C11 MT; +GLIM2TAB2 PO; +LOSA50TA41 MT; +METF-416 MT; +SAXA5TAB MT
[2019-02-09 16:50] VITALS: BP 128/75
[2019-02-09 17:30] VITALS: BP 128/75
[2019-02-09] MEDS ORDERED: HYDROCODONE/ACETAMINOPHEN 5/325MG TABLET PO PRN (18:30)
[2019-02-09] MEDS ORDERED: ACETAMINOPHEN 650MG/20.3ML UDC PO PRN (18:30)
[2019-02-09] MEDS ORDERED: DEXTROSE 50% WATER 50ML SYRINGE IV PRN (18:30)
[2019-02-09] MEDS ORDERED: METFORMIN HCL 500MG TABLET PO NR (19:00)
[2019-02-09 20:00] VITALS: BP 140/78
[2019-02-09] MEDS ORDERED: ZOLPIDEM TARTRATE 5MG TABLET PO PRN (21:00)
[2019-02-09] MEDS: BLOOD SUGAR DIAGNOSTIC STRIP TEST SCH (21:00)
[2019-02-09] MEDS: INSULIN LISPRO 100 UNITS/ML SUBCUT SCH (21:00)
[2019-02-10] VITALS: BP 134/74
[2019-02-10] MEDS: DILTIAZEM HCL 30MG TABLET PO SCH ×2 (00:59→05:54)
[2019-02-10 04:00] VITALS: BP 148/81
[2019-02-10] MEDS: BLOOD SUGAR DIAGNOSTIC STRIP TEST SCH ×4 (06:44→21:10)
[2019-02-10] MEDS: INSULIN LISPRO 100 UNITS/ML SUBCUT SCH ×4 (07:50→21:09)
[2019-02-10 07:56] LABS: INR 1.1; PARTIAL THROMBOPLASTIN TIME 29.9 sec (23.4-31.0); PROTHROMBIN TIME 11.5 sec (9.6-11.0)
[2019-02-10 08:00] VITALS: BP 144/82
[2019-02-10 08:18] LABS: BASOPHILS % 0.7 % (0.0-2.0); EOSINOPHILS % 4.8 % (0.0-5.0); HEMATOCRIT. 36.5 % (36.0-48.0); HEMOGLOBIN. 11.3 g/dL (12.0-16.0); LYMPHOCYTES % 30.6 % (20.0-50.0); MEAN CORPUSCULAR HEMOGLOBIN 25.8 pg (28.0-32.0); MEAN CORPUSCULAR VOLUME 83.6 fL (81.0-99.0); MONOCYTES % 7.8 % (2.0-8.0); NEUTROPHILS % 56.1 % (40.0-76.0); PLATELET 263 x1000/uL (130-400); RED BLOOD CELL COUNT 4.36 mill/uL (4.2-5.4); RED CELL DISTRIBUTION WIDTH 16.9 % (11.6-14.6)
[2019-02-10 10:05] LABS: CHLORIDE 106 mEq/L (98-107)
[2019-02-10] MEDS ORDERED: POTASSIUM CHLORIDE 20MEQ TABLET SR PO SCH (11:15)
[2019-02-10] MEDS ORDERED: CLONIDINE 0.1MG TABLET PO PRN (11:30)
[2019-02-10] MEDS ORDERED: APIXABAN 2.5 MG TABLET PO SCH (11:30)
[2019-02-10 12:00] VITALS: BP 170/92
[2019-02-10] MEDS: DILTIAZEM HCL 180MG CAPSULE CD 24HR PO SCH (12:03)
[2019-02-10] MEDS: NEBIVOLOL HCL 5 MG TABLET PO SCH ×2 (12:04→21:12)
[2019-02-10 16:00] VITALS: BP 153/86
[2019-02-10] MEDS: SPIRONOLACTONE 25MG TABLET PO SCH (17:44)
[2019-02-10] MEDS: METFORMIN HCL 500MG TABLET PO SCH (17:44)
[2019-02-10 20:00] VITALS: BP 141/67
[2019-02-10] MEDS: APIXABAN 5 MG TABLET PO SCH (21:00)
[2019-02-11 04:00] VITALS: BP 149/81
[2019-02-11] MEDS: BLOOD SUGAR DIAGNOSTIC STRIP TEST SCH ×2 (06:55→12:18)
[2019-02-11] MEDS: INSULIN LISPRO 100 UNITS/ML SUBCUT SCH ×2 (06:55→12:18)
[2019-02-11 08:27] VITALS: BP 142/80
[2019-02-11] MEDS: SPIRONOLACTONE 25MG TABLET PO SCH (08:47)
[2019-02-11] MEDS: METFORMIN HCL 500MG TABLET PO SCH (08:47)
[2019-02-11] MEDS: APIXABAN 5 MG TABLET PO SCH (08:47)
[2019-02-11] MEDS: DILTIAZEM HCL 180MG CAPSULE CD 24HR PO SCH (08:47)
[2019-02-11] MEDS: NEBIVOLOL HCL 5 MG TABLET PO SCH (08:48)
[2019-02-11 10:30] LABS: BASOPHILS % 0.4 % (0.0-2.0); EOSINOPHILS % 5.4 % (0.0-5.0); HEMATOCRIT. 36.5 % (36.0-48.0); HEMOGLOBIN. 11.5 g/dL (12.0-16.0); LYMPHOCYTES % 33.8 % (20.0-50.0); MEAN CORPUSCULAR HEMOGLOBIN 26.1 pg (28.0-32.0); MONOCYTES % 6.2 % (2.0-8.0); NEUTROPHILS % 54.2 % (40.0-76.0); PLATELET 287 x1000/uL (130-400); RED CELL DISTRIBUTION WIDTH 16.9 % (11.6-14.6)
[2019-02-11 11:10] LABS: CHLORIDE 104 mEq/L (98-107)
[2019-02-11 12:30] VITALS: BP 150/91
[2019-02-11 12:38] VITALS: BP 150/88
== END 2019-02-11 15:15 | disposition home or self-care (01) | DRG 309 ==
LOC: 6WST 11:20
PROVIDERS: ADMIT Specialist; ATTEND Specialist
DX: I48.91 Unspecified atrial fibrillation (principal); E44.1 Mild protein-calorie malnutrition; I49.5 Sick sinus syndrome; E11.9 Type 2 diabetes mellitus without complications; I10 Essential (primary) hypertension; M16.11 Unilateral primary osteoarthritis, right hip; M48.00 Spinal stenosis, site unspecified; Z96.653 Presence of artificial knee joint, bilateral; E78.5 Hyperlipidemia, unspecified; J45.909 Unspecified asthma, uncomplicated; Z79.01 Long term (current) use of anticoagulants; Z86.73 Personal history of transient ischemic attack (TIA), and cerebral infarction without residual deficits; Z79.899 Other long term (current) drug therapy; Z79.4 Long term (current) use of insulin; Z90.710 Acquired absence of both cervix and uterus; Z79.84 Long term (current) use of oral hypoglycemic drugs; Z88.2 Allergy status to sulfonamides; Z88.8 Allergy status to other drugs, medicaments and biological substances
CPT/HCPCS: 36415; 71046; 80048; 82962; 83036; 83735; 83880; 84443; 84484; 93005; 93970; J1815

== ENCOUNTER 2020-05-28 14:03 | Inpatient (IN) | payer MEDICARE, OTHER, MEDICAID ==
[~2020-05-28] VITALS: Ht 167.6 cm; Wt 90.8 kg
[~2020-05-28 14:03] MED LIST changes: -DOCU-150 PO; -GLIM2TAB2 PO; +GLIM2TAB30 PO; +METF-414 MT; -METF-416 MT; +NEBI5TAB3 PO; +QUET25TA PO
[2020-05-28] MEDS ORDERED: ETOMIDATE 2MG/ML 10ML VIAL IV ONE (15:00)
[2020-05-28] MEDS ORDERED: CEFTRIAXONE 1 G PREMIX 50 ML IV ONE (15:00)
[2020-05-28] MEDS ORDERED: FENTANYL CITRATE/PF 50MCG/ML 2ML VIAL IV ONE (15:00)
[2020-05-28] MEDS ORDERED: AZITHROMYCIN 500 MG in DEXT 5% WATER 250 ML IV ONE (15:00)
[2020-05-28] MEDS ORDERED: SUCCINYLCHOLINE CHLORIDE 200MG/10ML IV ONE (15:00)
[2020-05-28] MEDS ORDERED: DILTIAZEM HCL 5MG/ML 5ML VIAL IV ONE ×2 (15:00→18:30)
[2020-05-28] MEDS ORDERED: PROPOFOL 10MG/ML 100ML 100 ML IV ONE (15:00)
[2020-05-28 15:06] LABS: BASOPHILS % 0.5 % (0.0-2.0); EOSINOPHILS % 1.6 % (0.0-5.0); HEMATOCRIT. 43.9 % (36.0-48.0); HEMOGLOBIN. 13.3 g/dL (12.0-16.0); LYMPHOCYTES % 61.5 % (20.0-50.0); MEAN CORPUSCULAR HEMOGLOBIN 27.3 pg (28.0-32.0); MEAN PLATELET VOLUME 11.4 fl (7.4-10.4); MONOCYTES % 3.9 % (2.0-8.0); NEUTROPHILS % 32.5 % (40.0-76.0); PLATELET 227 x1000/uL (130-400); RED BLOOD CELL COUNT 4.88 mill/uL (4.2-5.4); RED CELL DISTRIBUTION WIDTH 15.7 % (11.6-14.6)
[2020-05-28 15:09] LABS: CHLORIDE 95 mEq/L (98-107)
[2020-05-28 15:15] LABS: BG BASE EXCESS -2.6 mmol/L (-2.0-2.0); BG CARBOXYHEMOGLOBIN 0.5 % (0.5-1.5); BG METHEMOGLOBIN 0.2 % (0.0-1.5); BG OXYHEMOGLOBIN 97.3 % (94.0-97.0); BG PH 7.276 (7.350-7.450); BG PO2 110.7 mmHg (75.0-100.0); BG SAMPLE SITE RIGHT BRACHIAL; BG TOTAL HEMOGLOBIN 14.4 g/dL (12.0-18.0); BG VENT MODE VENT - AC
[2020-05-28 15:15] LABS: CLARITY URINE CLEAR (CLEAR); COLOR URINE YELLOW (YELLOW); KETONES URINE NEGATIVE (NEGATIVE); LEUKOCYTE ESTERASE URINE NEGATIVE (NEGATIVE); NITRITE URINE NEGATIVE (NEGATIVE); OCCULT BLOOD URINE NEGATIVE (NEGATIVE); PROTEIN URINE 2+ (NEGATIVE); SPECIFIC GRAVITY URINE 1.037 (1.005-1.030); UROBILINOGEN URINE 0.2 E.U./dL (0.2-1.0)
[2020-05-28 15:18] LABS: PROTHROMBIN TIME 10.5 sec (9.6-11.0)
[2020-05-28] MEDS ORDERED: INSULIN REGULAR (HUMULIN R) 300UNITS/3ML VIAL IV ONE (15:45)
[2020-05-28] MEDS ORDERED: SODIUM CHLORIDE 0.9% 500 ML IV ONE (15:45)
[2020-05-28] MEDS ORDERED: FUROSEMIDE 100MG/10ML VIAL IVP ONE (18:30)
[2020-05-28] MEDS: PROPOFOL 10MG/ML 100ML 100 ML IV PRN ×2 (18:45→20:48)
[2020-05-28] MEDS ORDERED: FENTANYL CITRATE 2,500 MCG in SODIUM CHLORIDE 0.9% 200 ML IV PRN (21:30)
[2020-05-28] MEDS ORDERED: NOREPINEPHRINE 8 MG in DEXTROSE 5% WATER 250 ML IV PRN (21:30)
[2020-05-29 10:56] LABS: BG BASE EXCESS 5.4 mmol/L (-2.0-2.0); BG CARBOXYHEMOGLOBIN 0.4 % (0.5-1.5); BG DEOXYHEMOGLOBIN 0.3 % (0.0-5.0); BG FRACTION INSPIRED OXYGEN 100; BG HCO3 ACT 28.4 mmol/L (22.0-26.0); BG METHEMOGLOBIN 0.3 % (0.0-1.5); BG OXYGEN SATURATION 99.7 % (92.0-98.5); BG PH 7.515 (7.350-7.450); BG PO2 218.7 mmHg (75.0-100.0); BG SAMPLE SITE RIGHT RADIAL; BG TOTAL HEMOGLOBIN 13.4 g/dL (12.0-18.0); BG VENT MODE VENT - AC
[2020-05-29] MEDS: PROPOFOL 10MG/ML 100ML 100 ML IV PRN ×2 (12:01→21:54)
[2020-05-29] MEDS ORDERED: PANTOPRAZOLE SODIUM 40 MG/VIAL IV SCH (18:45)
[2020-05-29] MEDS ORDERED: FUROSEMIDE 40MG/4ML VIAL IVP SCH (18:45)
[2020-05-29] MEDS ORDERED: ACETAMINOPHEN 325MG TABLET PO PRN (18:45)
[2020-05-29] MEDS ORDERED: LEVETIRACETAM 500 MG in SODIUM CHLORIDE 0.9% 100 ML IV SCH (18:45)
[2020-05-29] MEDS ORDERED: CLONIDINE 0.1MG TABLET PO PRN (18:45)
[2020-05-29] MEDS ORDERED: HYDROCODONE/ACETAMINOPHEN 5/325MG TABLET PO PRN (18:45)
[2020-05-29] MEDS ORDERED: ONDANSETRON HCL 4MG/2ML INJ IV PRN (18:45)
[2020-05-29] MEDS ORDERED: DILTIAZEM HCL 120MG CAPSULE CD 24HR PO SCH (20:00)
[2020-05-29] MEDS: LEVETIRACETAM 500MG PREMIX 100 ML IV SCH (20:03)
[2020-05-29] MEDS ORDERED: IPRATROPIUM/ALBUTEROL 0.5-3(2.5)MG/3ML NEB HHN PRN (20:15)
[2020-05-29] MEDS ORDERED: ENOXAPARIN 40MG/0.4ML SYR SUBCUT SCH (21:00)
[2020-05-29] MEDS: PIPERACILLIN/TAZOBACTAM 3.375 G in DEXT 5% WATER 100 ML IV SCH (21:54)
[2020-05-30 01:22] LABS: HEMATOCRIT. 39.1 % (36.0-48.0); HEMOGLOBIN. 12.7 g/dL (12.0-16.0); MEAN CORPUSCULAR HEMOGLOBIN 27.4 pg (28.0-32.0); MEAN CORPUSCULAR VOLUME 84.6 fL (81.0-99.0); MEAN PLATELET VOLUME 10.6 fl (7.4-10.4); PLATELET 185 x1000/uL (130-400); RED BLOOD CELL COUNT 4.63 mill/uL (4.2-5.4); RED CELL DISTRIBUTION WIDTH 15.4 % (11.6-14.6)
[2020-05-30 01:26] LABS: CHLORIDE 98 mEq/L (98-107)
[2020-05-30 01:33] LABS: LDL CHOLESTEROL 109 mg/dL (5-100); PHOSPHORUS 2.8 mg/dL (2.5-4.9)
[2020-05-30 01:35] LABS: HDL CHOLESTEROL 57 mg/dL (40-59)
[2020-05-30 01:46] LABS: FOLIC ACID (FOLATE) SERUM 14.4 ng/mL (>5.38)
[2020-05-30 02:40] LABS: PLATELET ESTIMATE NORMAL
[2020-05-30] MEDS ORDERED: POTASSIUM CHLORIDE 20MEQ/PACKET GT SCH (03:00)
[2020-05-30] MEDS ORDERED: DEXTROSE 50% WATER 50ML SYRINGE IV PRN (03:00)
[2020-05-30] MEDS: PIPERACILLIN/TAZOBACTAM 3.375 G in DEXT 5% WATER 100 ML IV SCH ×2 (03:16→09:08)
[2020-05-30] MEDS: IPRATROPIUM/ALBUTEROL 0.5-3(2.5)MG/3ML NEB HHN SCH ×4 (03:32→12:24)
[2020-05-30] MEDS: PROPOFOL 10MG/ML 100ML 100 ML IV PRN (05:41)
[2020-05-30] MEDS: BLOOD SUGAR DIAGNOSTIC STRIP TEST SCH ×3 (06:06→23:27)
[2020-05-30] MEDS: NEBIVOLOL HCL 5 MG TABLET PO SCH (06:07)
[2020-05-30] MEDS: INSULIN LISPRO (HIGH DOSE) 100 UNITS/ML SUBCUT SCH ×2 (06:08→14:00)
[2020-05-30] MEDS: DILTIAZEM HCL 125 MG in DEXTROSE 5% WATER 125 ML IV PRN (06:50)
[2020-05-30 08:39] LABS: BG BASE EXCESS -3.9 mmol/L (-2.0-2.0); BG CARBOXYHEMOGLOBIN 0.8 % (0.5-1.5); BG DEOXYHEMOGLOBIN 2.1 % (0.0-5.0); BG FRACTION INSPIRED OXYGEN 100; BG HCO3 ACT 20.4 mmol/L (22.0-26.0); BG METHEMOGLOBIN 0.3 % (0.0-1.5); BG OXYGEN SATURATION 97.9 % (92.0-98.5); BG OXYHEMOGLOBIN 96.8 % (94.0-97.0); BG PCO2 35.2 mmHg (35.0-45.0); BG PH 7.382 (7.350-7.450); BG SAMPLE SITE RIGHT RADIAL; BG TOTAL HEMOGLOBIN 14.1 g/dL (12.0-18.0); BG VENT MODE VENT - AC
[2020-05-30] MEDS ORDERED: POTASSIUM CHLORIDE 20MEQ TABLET SR PO SCH (10:15)
[2020-05-30 11:13] LABS: BASOPHILS % 0.5 % (0.0-2.0); EOSINOPHILS % 1.7 % (0.0-5.0); HEMATOCRIT. 40.5 % (36.0-48.0); HEMOGLOBIN. 12.8 g/dL (12.0-16.0); LYMPHOCYTES % 24.7 % (20.0-50.0); MEAN CORPUSCULAR HEMOGLOBIN 27.2 pg (28.0-32.0); MEAN CORPUSCULAR VOLUME 86.1 fL (81.0-99.0); MONOCYTES % 10.1 % (2.0-8.0); PLATELET 173 x1000/uL (130-400); RED BLOOD CELL COUNT 4.71 mill/uL (4.2-5.4); RED CELL DISTRIBUTION WIDTH 15.7 % (11.6-14.6)
[2020-05-30] MEDS: LEVETIRACETAM 500MG PREMIX 100 ML IV SCH ×2 (12:00→23:37)
[2020-05-30] MEDS ORDERED: MAGNESIUM 2 G PREMIX 50 ML IV SCH (12:00)
[2020-05-30] MEDS: FAMOTIDINE 20MG/2ML VIAL IV SCH (13:00)
[2020-05-30] MEDS: ENOXAPARIN 100MG/ML SYR SUBCUT SCH ×2 (13:00→23:36)
[2020-05-30] MEDS ORDERED: KCL 20MEQ/100ML PREMIX 100 ML IV NR (13:45)
[2020-05-30] MEDS ORDERED: PROPOFOL 10MG/ML 100ML 100 ML IV PRN (17:00)
[2020-05-30] MEDS: IPRATROPIUM BROMIDE (0.02%) 0.5MG/2.5ML NEB HHN SCH (20:44)
[2020-05-30] MEDS: INSULIN GLARGINE UD 100 UNITS/ML SYR SUBCUT SCH (23:36)
[2020-05-31 00:36] LABS: T4 FREE 1.39 ng/dL (0.76-1.46)
[2020-05-31] MEDS: CYANOCOBALAMIN 1000MCG/ML VIAL IM SCH ×2 (00:55→09:00)
[2020-05-31] MEDS: INSULIN LISPRO (HIGH DOSE) 100 UNITS/ML SUBCUT SCH ×4 (03:03→17:58)
[2020-05-31] MEDS: IPRATROPIUM BROMIDE (0.02%) 0.5MG/2.5ML NEB HHN SCH ×3 (04:32→20:58)
[2020-05-31] MEDS: PIPERACILLIN/TAZOBACTAM 3.375 G in DEXT 5% WATER 100 ML IV SCH ×3 (04:33→16:59)
[2020-05-31] MEDS: BLOOD SUGAR DIAGNOSTIC STRIP TEST SCH ×3 (06:41→17:58)
[2020-05-31] MEDS: NEBIVOLOL HCL 5 MG TABLET PO SCH (08:00)
[2020-05-31 08:46] LABS: BASOPHILS % 1.4 % (0.0-2.0); EOSINOPHILS % 1.4 % (0.0-5.0); HEMATOCRIT. 41.9 % (36.0-48.0); HEMOGLOBIN. 13.3 g/dL (12.0-16.0); LYMPHOCYTES % 23.1 % (20.0-50.0); MEAN CORPUSCULAR VOLUME 85.2 fL (81.0-99.0); MEAN PLATELET VOLUME 10.9 fl (7.4-10.4); MONOCYTES % 5.5 % (2.0-8.0); NEUTROPHILS % 68.6 % (40.0-76.0); PLATELET 219 x1000/uL (130-400); RED BLOOD CELL COUNT 4.92 mill/uL (4.2-5.4); RED CELL DISTRIBUTION WIDTH 15.3 % (11.6-14.6)
[2020-05-31 08:48] LABS: BG BASE EXCESS -2.4 mmol/L (-2.0-2.0); BG CARBOXYHEMOGLOBIN 1.1 % (0.5-1.5); BG DEOXYHEMOGLOBIN 5.3 % (0.0-5.0); BG HCO3 ACT 23.3 mmol/L (22.0-26.0); BG METHEMOGLOBIN 0.2 % (0.0-1.5); BG OXYGEN SATURATION 94.6 % (92.0-98.5); BG OXYHEMOGLOBIN 93.4 % (94.0-97.0); BG PCO2 43.3 mmHg (35.0-45.0); BG PH 7.348 (7.350-7.450); BG PO2 72.1 mmHg (75.0-100.0); BG SAMPLE SITE RIGHT BRACHIAL; BG TOTAL HEMOGLOBIN 14.1 g/dL (12.0-18.0); BG VENT MODE VENT - AC
[2020-05-31 08:54] LABS: CHLORIDE 101 mEq/L (98-107)
[2020-05-31] MEDS: LEVETIRACETAM 500MG PREMIX 100 ML IV SCH ×2 (09:00→22:00)
[2020-05-31] MEDS: FAMOTIDINE 20MG/2ML VIAL IV SCH (09:06)
[2020-05-31] MEDS: ALLOPURINOL 100 MG TABLET PO SCH ×2 (09:48→10:00)
[2020-05-31] MEDS ORDERED: POTASSIUM CHLORIDE 20MEQ TABLET SR PO SCH (10:00)
[2020-05-31] MEDS: ENOXAPARIN 100MG/ML SYR SUBCUT SCH (11:00)
[2020-05-31] MEDS: INSULIN GLARGINE UD 100 UNITS/ML SYR SUBCUT SCH (11:00)
[2020-05-31] MEDS ORDERED: IOHEXOL-350 100 ML BOTTLE ONE (12:01)
[2020-05-31] MEDS: DILTIAZEM HCL 60MG TABLET PO SCH ×2 (16:00→18:00)
[2020-05-31 17:05] LABS: VITAMIN B12 SERUM > 2000.0 pg/mL (211-911)
[2020-05-31] MEDS ORDERED: PROPOFOL 10MG/ML 100ML 100 ML IV PRN (21:45)
[2020-06-01] VITALS (45 sets, daily range): BP systolic 79–208; BP diastolic 35–116
[2020-06-01] MEDS: BLOOD SUGAR DIAGNOSTIC STRIP TEST SCH ×4 (01:00→23:26)
[2020-06-01] MEDS: INSULIN GLARGINE UD 100 UNITS/ML SYR SUBCUT SCH ×3 (01:00→21:15)
[2020-06-01] MEDS: ENOXAPARIN 100MG/ML SYR SUBCUT SCH ×3 (01:00→21:00)
[2020-06-01] MEDS: PIPERACILLIN/TAZOBACTAM 3.375 G in DEXT 5% WATER 100 ML IV SCH ×3 (01:00→21:00)
[2020-06-01] MEDS: INSULIN LISPRO (HIGH DOSE) 100 UNITS/ML SUBCUT SCH ×5 (01:00→23:43)
[2020-06-01] MEDS: IPRATROPIUM BROMIDE (0.02%) 0.5MG/2.5ML NEB HHN SCH ×3 (03:03→20:26)
[2020-06-01 06:15] LABS: EOSINOPHILS % 2.1 % (0.0-5.0); HEMATOCRIT. 39.7 % (36.0-48.0); HEMOGLOBIN. 13.1 g/dL (12.0-16.0); LYMPHOCYTES % 20.3 % (20.0-50.0); MEAN CORPUSCULAR HEMOGLOBIN 27.4 pg (28.0-32.0); MEAN PLATELET VOLUME 9.9 fl (7.4-10.4); MONOCYTES % 7.4 % (2.0-8.0); NEUTROPHILS % 69.2 % (40.0-76.0); PLATELET 209 x1000/uL (130-400); RED BLOOD CELL COUNT 4.78 mill/uL (4.2-5.4); RED CELL DISTRIBUTION WIDTH 15.1 % (11.6-14.6)
[2020-06-01 06:27] LABS: CHLORIDE 100 mEq/L (98-107)
[2020-06-01] MEDS: NEBIVOLOL HCL 5 MG TABLET PO SCH (07:00)
[2020-06-01] MEDS ORDERED: PIPERACILLIN/TAZ 3.375G PREMIX 50 ML IV SCH (07:00)
[2020-06-01] MEDS: ALLOPURINOL 100 MG TABLET PO SCH (09:00)
[2020-06-01 10:22] LABS: BG BASE EXCESS -2.9 mmol/L (-2.0-2.0); BG CARBOXYHEMOGLOBIN 0.7 % (0.5-1.5); BG DEOXYHEMOGLOBIN 4.6 % (0.0-5.0); BG FRACTION INSPIRED OXYGEN 40; BG METHEMOGLOBIN 0.3 % (0.0-1.5); BG OXYGEN SATURATION 95.4 % (92.0-98.5); BG OXYHEMOGLOBIN 94.4 % (94.0-97.0); BG PCO2 44.2 mmHg (35.0-45.0); BG PH 7.335 (7.350-7.450); BG PO2 78.9 mmHg (75.0-100.0); BG SAMPLE SITE RIGHT RADIAL; BG TOTAL HEMOGLOBIN 13.9 g/dL (12.0-18.0); BG VENT MODE VENT - AC
[2020-06-01] MEDS: FAMOTIDINE 20MG/2ML VIAL IV SCH (11:01)
[2020-06-01] MEDS: CYANOCOBALAMIN 1000MCG/ML VIAL IM SCH (11:27)
[2020-06-01] MEDS: LEVETIRACETAM 500MG PREMIX 100 ML IV SCH ×2 (11:27→22:03)
[2020-06-01] MEDS: DILTIAZEM HCL 60MG TABLET PO SCH ×3 (12:52→23:26)
[2020-06-01] MEDS ORDERED: SODIUM BICARBONATE 8.4% 1 MEQ/ML 50ML SYR IV ONE (13:00)
[2020-06-01] MEDS ORDERED: EPINEPHRINE 0.1MG/ML (1:10,000) 10ML SYR ONE (13:00)
[2020-06-01] MEDS: NOREPINEPHRINE 32 MG in DEXT 5% WATER 218 ML IV PRN ×2 (14:20→22:32)
[2020-06-01] MEDS: FENTANYL CITRATE/PF 2,500 MCG in SODIUM CHLORIDE 0.9% 200 ML IV PRN (22:09)
[2020-06-02] VITALS (75 sets, daily range): BP systolic 62–169; BP diastolic 21–113
[2020-06-02] MEDS: ACETAMINOPHEN 325MG TABLET PO PRN (00:54)
[2020-06-02] MEDS: IPRATROPIUM BROMIDE (0.02%) 0.5MG/2.5ML NEB HHN SCH ×2 (02:43→09:07)
[2020-06-02] MEDS: PIPERACILLIN/TAZOBACTAM 3.375 G in DEXT 5% WATER 100 ML IV SCH ×4 (04:37→22:03)
[2020-06-02] MEDS: DILTIAZEM HCL 60MG TABLET PO SCH ×4 (05:29→23:08)
[2020-06-02] MEDS: BLOOD SUGAR DIAGNOSTIC STRIP TEST SCH ×4 (05:29→23:13)
[2020-06-02] MEDS: INSULIN LISPRO (HIGH DOSE) 100 UNITS/ML SUBCUT SCH ×4 (05:45→23:21)
[2020-06-02] MEDS: NEBIVOLOL HCL 5 MG TABLET PO SCH (08:00)
[2020-06-02] MEDS: LEVETIRACETAM 500MG PREMIX 100 ML IV SCH ×2 (09:10→20:13)
[2020-06-02] MEDS: ALLOPURINOL 100 MG TABLET PO SCH (09:11)
[2020-06-02] MEDS: FAMOTIDINE 20MG/2ML VIAL IV SCH (09:11)
[2020-06-02] MEDS: ENOXAPARIN 100MG/ML SYR SUBCUT SCH ×2 (11:00→22:04)
[2020-06-02] MEDS: INSULIN GLARGINE UD 100 UNITS/ML SYR SUBCUT SCH ×2 (11:03→22:05)
[2020-06-02] MEDS: FENTANYL CITRATE/PF 2,500 MCG in SODIUM CHLORIDE 0.9% 200 ML IV PRN ×2 (11:28→21:28)
[2020-06-02 11:46] LABS: BASOPHILS % 1.1 % (0.0-2.0); EOSINOPHILS % 1.2 % (0.0-5.0); HEMATOCRIT. 41.7 % (36.0-48.0); HEMOGLOBIN. 13.5 g/dL (12.0-16.0); LYMPHOCYTES % 23.1 % (20.0-50.0); MEAN CORPUSCULAR HEMOGLOBIN 27.6 pg (28.0-32.0); MEAN CORPUSCULAR VOLUME 85.1 fL (81.0-99.0); MEAN PLATELET VOLUME 10.4 fl (7.4-10.4); MONOCYTES % 10.3 % (2.0-8.0); NEUTROPHILS % 64.3 % (40.0-76.0); PLATELET 233 x1000/uL (130-400); RED CELL DISTRIBUTION WIDTH 15.2 % (11.6-14.6)
[2020-06-02 12:53] LABS: BG BASE EXCESS -3.2 mmol/L (-2.0-2.0); BG CARBOXYHEMOGLOBIN 0.4 % (0.5-1.5); BG DEOXYHEMOGLOBIN 2.3 % (0.0-5.0); BG FRACTION INSPIRED OXYGEN 50; BG HCO3 ACT 23.5 mmol/L (22.0-26.0); BG METHEMOGLOBIN 0.4 % (0.0-1.5); BG OXYGEN SATURATION 97.7 % (92.0-98.5); BG OXYHEMOGLOBIN 96.9 % (94.0-97.0); BG PCO2 48.6 mmHg (35.0-45.0); BG PH 7.303 (7.350-7.450); BG PO2 107.8 mmHg (75.0-100.0); BG SAMPLE SITE RIGHT RADIAL; BG TOTAL HEMOGLOBIN 13.6 g/dL (12.0-18.0); BG TOTAL RESPIRATORY RATE 14 b/min; BG VENT MODE VENT - AC
[2020-06-02 15:42] LABS: CLARITY URINE TURBID (CLEAR); COLOR URINE RED (YELLOW); KETONES URINE NEGATIVE (NEGATIVE); LEUKOCYTE ESTERASE URINE 2+ (NEGATIVE); NITRITE URINE POSITIVE (NEGATIVE); OCCULT BLOOD URINE 1+ (NEGATIVE); PROTEIN URINE TRACE (NEGATIVE); SPECIFIC GRAVITY URINE 1.023 (1.005-1.030); UROBILINOGEN URINE 0.2 E.U./dL (0.2-1.0)
[2020-06-02] MEDS: NOREPINEPHRINE 32 MG in DEXT 5% WATER 218 ML IV PRN (17:55)
[2020-06-03] VITALS (46 sets, daily range): BP systolic 79–163; BP diastolic 52–131
[2020-06-03] MEDS: DILTIAZEM HCL 60MG TABLET PO SCH ×3 (05:00→17:04)
[2020-06-03] MEDS: PIPERACILLIN/TAZOBACTAM 3.375 G in DEXT 5% WATER 100 ML IV SCH ×4 (05:00→23:57)
[2020-06-03] MEDS: BLOOD SUGAR DIAGNOSTIC STRIP TEST SCH ×3 (05:00→17:05)
[2020-06-03] MEDS: INSULIN LISPRO (HIGH DOSE) 100 UNITS/ML SUBCUT SCH ×3 (05:21→17:47)
[2020-06-03] MEDS: FENTANYL CITRATE/PF 2,500 MCG in SODIUM CHLORIDE 0.9% 200 ML IV PRN ×2 (06:41→15:18)
[2020-06-03] MEDS: NEBIVOLOL HCL 5 MG TABLET PO SCH (07:53)
[2020-06-03] MEDS: IPRATROPIUM BROMIDE (0.02%) 0.5MG/2.5ML NEB HHN SCH ×3 (08:55→20:36)
[2020-06-03] MEDS: FAMOTIDINE 20MG/2ML VIAL IV SCH (09:06)
[2020-06-03] MEDS: DOCUSATE SODIUM 100MG CAPSULE PO SCH ×2 (09:06→17:04)
[2020-06-03] MEDS: ALLOPURINOL 100 MG TABLET PO SCH (09:06)
[2020-06-03] MEDS: INSULIN GLARGINE UD 100 UNITS/ML SYR SUBCUT SCH (11:15)
[2020-06-03] MEDS: LEVETIRACETAM 500MG PREMIX 100 ML IV SCH ×2 (11:17→21:13)
[2020-06-03] MEDS: ENOXAPARIN 100MG/ML SYR SUBCUT SCH ×2 (11:45→23:15)
[2020-06-03 15:31] LABS: BG BASE EXCESS -1.5 mmol/L (-2.0-2.0); BG CARBOXYHEMOGLOBIN 0.1 % (0.5-1.5); BG FRACTION INSPIRED OXYGEN 40; BG HCO3 ACT 23.5 mmol/L (22.0-26.0); BG OXYHEMOGLOBIN 94.9 % (94.0-97.0); BG PCO2 40.5 mmHg (35.0-45.0); BG PH 7.381 (7.350-7.450); BG PO2 71.3 mmHg (75.0-100.0); BG SAMPLE SITE RIGHT RADIAL; BG TOTAL HEMOGLOBIN 12.1 g/dL (12.0-18.0); BG VENT MODE VENT - AC
[2020-06-03] MEDS: NOREPINEPHRINE 32 MG in DEXT 5% WATER 218 ML IV PRN (16:19)
[2020-06-04] VITALS (83 sets, daily range): BP systolic 63–170; BP diastolic 39–143
[2020-06-04] MEDS: BLOOD SUGAR DIAGNOSTIC STRIP TEST SCH ×4 (00:10→17:28)
[2020-06-04] MEDS: DILTIAZEM HCL 60MG TABLET PO SCH ×4 (00:11→17:32)
[2020-06-04] MEDS: INSULIN GLARGINE UD 100 UNITS/ML SYR SUBCUT SCH ×3 (00:12→21:52)
[2020-06-04] MEDS: INSULIN LISPRO (HIGH DOSE) 100 UNITS/ML SUBCUT SCH ×4 (00:13→17:33)
[2020-06-04] MEDS: IPRATROPIUM BROMIDE (0.02%) 0.5MG/2.5ML NEB HHN SCH ×4 (02:44→20:27)
[2020-06-04] MEDS: FENTANYL CITRATE/PF 2,500 MCG in SODIUM CHLORIDE 0.9% 200 ML IV PRN ×2 (04:50→13:46)
[2020-06-04 06:17] LABS: CHLORIDE 103 mEq/L (98-107)
[2020-06-04 06:19] LABS: BASOPHILS % 0.7 % (0.0-2.0); EOSINOPHILS % 1.6 % (0.0-5.0); HEMATOCRIT. 34.5 % (36.0-48.0); HEMOGLOBIN. 11.2 g/dL (12.0-16.0); LYMPHOCYTES % 23.3 % (20.0-50.0); MEAN CORPUSCULAR HEMOGLOBIN 27.6 pg (28.0-32.0); MEAN CORPUSCULAR VOLUME 85.3 fL (81.0-99.0); MONOCYTES % 11.8 % (2.0-8.0); NEUTROPHILS % 62.6 % (40.0-76.0); PLATELET 260 x1000/uL (130-400); RED BLOOD CELL COUNT 4.04 mill/uL (4.2-5.4); RED CELL DISTRIBUTION WIDTH 15.4 % (11.6-14.6)
[2020-06-04] MEDS: DOCUSATE SODIUM 100MG CAPSULE PO SCH ×2 (09:34→17:00)
[2020-06-04] MEDS: ALLOPURINOL 100 MG TABLET PO SCH (09:34)
[2020-06-04] MEDS: LEVETIRACETAM 500MG PREMIX 100 ML IV SCH ×2 (09:34→21:08)
[2020-06-04] MEDS: NEBIVOLOL HCL 5 MG TABLET PO SCH (09:50)
[2020-06-04] MEDS: MIDAZOLAM HCL 100 MG in DEXT 5% WATER 80 ML IV PRN (10:53)
[2020-06-04] MEDS ORDERED: LACTULOSE 20G/30ML UDC PO PRN (11:15)
[2020-06-04] MEDS ORDERED: CEFTRIAXONE 1 G PREMIX 50 ML IV SCH (11:15)
[2020-06-04] MEDS: FAMOTIDINE 20MG/2ML VIAL IV SCH (11:20)
[2020-06-04] MEDS: ENOXAPARIN 100MG/ML SYR SUBCUT SCH ×2 (11:20→22:00)
[2020-06-04] MEDS: CEFTRIAXONE 1,000 MG in DEXTROSE 5% WATER 50 ML IV SCH (13:28)
[2020-06-04 18:30] LABS: HEMATOCRIT 35.6 % (36.0-48.0); HEMOGLOBIN 11.5 g/dL (12.0-16.0); MEAN CORPUSCULAR HEMOGLOBIN 27.7 pg (28.0-32.0); MEAN CORPUSCULAR VOLUME 85.2 fL (81.0-99.0); PLATELET 264 x1000/uL (130-400); RED BLOOD CELL COUNT 4.17 mill/uL (4.2-5.4); RED CELL DISTRIBUTION WIDTH 15.1 % (11.6-14.6)
[2020-06-04] MEDS: NOREPINEPHRINE 32 MG in DEXT 5% WATER 218 ML IV PRN (21:56)
[2020-06-05] VITALS (89 sets, daily range): BP systolic 85–174; BP diastolic 52–94
[2020-06-05] MEDS: BLOOD SUGAR DIAGNOSTIC STRIP TEST SCH ×5 (00:53→23:12)
[2020-06-05] MEDS: DILTIAZEM HCL 60MG TABLET PO SCH ×5 (00:53→23:06)
[2020-06-05] MEDS: INSULIN LISPRO (HIGH DOSE) 100 UNITS/ML SUBCUT SCH ×5 (00:54→23:12)
[2020-06-05] MEDS: IPRATROPIUM BROMIDE (0.02%) 0.5MG/2.5ML NEB HHN SCH ×4 (02:31→20:54)
[2020-06-05 06:12] LABS: BASOPHILS % 0.5 % (0.0-2.0); EOSINOPHILS % 2.3 % (0.0-5.0); HEMATOCRIT. 34.6 % (36.0-48.0); HEMOGLOBIN. 11.3 g/dL (12.0-16.0); LYMPHOCYTES % 22.1 % (20.0-50.0); MEAN CORPUSCULAR HEMOGLOBIN 27.5 pg (28.0-32.0); MEAN CORPUSCULAR VOLUME 84.5 fL (81.0-99.0); MEAN PLATELET VOLUME 10.1 fl (7.4-10.4); MONOCYTES % 11.4 % (2.0-8.0); NEUTROPHILS % 63.7 % (40.0-76.0); PLATELET 270 x1000/uL (130-400); RED BLOOD CELL COUNT 4.09 mill/uL (4.2-5.4); RED CELL DISTRIBUTION WIDTH 15.1 % (11.6-14.6)
[2020-06-05 06:19] LABS: CHLORIDE 102 mEq/L (98-107)
[2020-06-05] MEDS: FAMOTIDINE 20MG/2ML VIAL IV SCH (08:31)
[2020-06-05] MEDS: LEVETIRACETAM 500MG PREMIX 100 ML IV SCH ×2 (08:31→23:17)
[2020-06-05] MEDS: DOCUSATE SODIUM SUGAR FREE 100MG/10ML UDC NG SCH ×2 (08:31→18:25)
[2020-06-05] MEDS: NEBIVOLOL HCL 5 MG TABLET PO SCH (08:32)
[2020-06-05] MEDS: ALLOPURINOL 100 MG TABLET PO SCH (08:38)
[2020-06-05] MEDS: NOREPINEPHRINE 32 MG in DEXT 5% WATER 218 ML IV PRN (08:39)
[2020-06-05] MEDS: ENOXAPARIN 100MG/ML SYR SUBCUT SCH ×2 (11:13→23:05)
[2020-06-05] MEDS: INSULIN GLARGINE UD 100 UNITS/ML SYR SUBCUT SCH ×2 (11:15→23:15)
[2020-06-05 11:42] LABS: BG BASE EXCESS 0.6 mmol/L (-2.0-2.0); BG CARBOXYHEMOGLOBIN 0.2 % (0.5-1.5); BG DEOXYHEMOGLOBIN 0.3 % (0.0-5.0); BG FRACTION INSPIRED OXYGEN 100; BG HCO3 ACT 24.7 mmol/L (22.0-26.0); BG METHEMOGLOBIN 0.2 % (0.0-1.5); BG OXYGEN SATURATION 99.7 % (92.0-98.5); BG OXYHEMOGLOBIN 99.3 % (94.0-97.0); BG PCO2 38.2 mmHg (35.0-45.0); BG PH 7.429 (7.350-7.450); BG PO2 271.8 mmHg (75.0-100.0); BG SAMPLE SITE RIGHT RADIAL; BG TOTAL HEMOGLOBIN 12.6 g/dL (12.0-18.0); BG TOTAL RESPIRATORY RATE 14 b/min; BG VENT MODE VENT - AC
[2020-06-05] MEDS ORDERED: LACTULOSE 300 ML in WATER FOR IRRIGATION,STERILE 700 ML IR SCH (12:00)
[2020-06-05] MEDS: CEFTRIAXONE 1,000 MG in DEXTROSE 5% WATER 50 ML IV SCH (12:56)
[2020-06-05] MEDS: LACTULOSE 20G/30ML UDC PO SCH ×2 (14:43→23:05)
[2020-06-05] MEDS: FENTANYL CITRATE/PF 2,500 MCG in SODIUM CHLORIDE 0.9% 200 ML IV PRN (14:53)
[2020-06-06] VITALS (54 sets, daily range): BP systolic 66–206; BP diastolic 43–154
[2020-06-06] MEDS: MIDAZOLAM HCL 100 MG in DEXT 5% WATER 80 ML IV PRN (00:12)
[2020-06-06] MEDS: IPRATROPIUM BROMIDE (0.02%) 0.5MG/2.5ML NEB HHN SCH ×4 (02:30→20:05)
[2020-06-06] MEDS: DILTIAZEM HCL 60MG TABLET PO SCH ×4 (05:15→23:51)
[2020-06-06] MEDS: LACTULOSE 20G/30ML UDC PO SCH ×3 (05:15→23:46)
[2020-06-06] MEDS: BLOOD SUGAR DIAGNOSTIC STRIP TEST SCH ×4 (05:16→23:52)
[2020-06-06] MEDS: INSULIN LISPRO (HIGH DOSE) 100 UNITS/ML SUBCUT SCH ×4 (05:16→23:52)
[2020-06-06] MEDS: INSULIN GLARGINE UD 100 UNITS/ML SYR SUBCUT SCH ×2 (10:00→23:49)
[2020-06-06] MEDS: DOCUSATE SODIUM SUGAR FREE 100MG/10ML UDC NG SCH ×2 (10:23→17:00)
[2020-06-06] MEDS: LEVETIRACETAM 500MG PREMIX 100 ML IV SCH ×2 (10:24→23:48)
[2020-06-06] MEDS: NEBIVOLOL HCL 5 MG TABLET PO SCH (10:24)
[2020-06-06] MEDS: ENOXAPARIN 100MG/ML SYR SUBCUT SCH ×2 (10:24→23:46)
[2020-06-06] MEDS: ALLOPURINOL 100 MG TABLET PO SCH (10:24)
[2020-06-06] MEDS: CEFTRIAXONE 1,000 MG in DEXTROSE 5% WATER 50 ML IV SCH (12:35)
[2020-06-06 12:38] LABS: BASOPHILS % 0.6 % (0.0-2.0); EOSINOPHILS % 2.2 % (0.0-5.0); HEMATOCRIT. 33.4 % (36.0-48.0); HEMOGLOBIN. 10.8 g/dL (12.0-16.0); LYMPHOCYTES % 29.9 % (20.0-50.0); MEAN CORPUSCULAR HEMOGLOBIN 27.3 pg (28.0-32.0); MEAN CORPUSCULAR VOLUME 84.3 fL (81.0-99.0); MEAN PLATELET VOLUME 9.2 fl (7.4-10.4); NEUTROPHILS % 57.3 % (40.0-76.0); PLATELET 329 x1000/uL (130-400); RED BLOOD CELL COUNT 3.96 mill/uL (4.2-5.4)
[2020-06-06 12:46] LABS: CHLORIDE 104 mEq/L (98-107)
[2020-06-06] MEDS ORDERED: LACTULOSE 300 ML in WATER FOR IRRIGATION,STERILE 700 ML IR NR (16:00)
[2020-06-06] MEDS ORDERED: SORBITOL 70% SOLN 30ML NG NR (16:00)
[2020-06-06] MEDS: FAMOTIDINE 20MG/2ML VIAL IV SCH (18:51)
[2020-06-06] MEDS: METOCLOPRAMIDE HCL 10MG/2ML VIAL IV SCH ×2 (18:52→23:46)
[2020-06-07] VITALS (89 sets, daily range): BP systolic 67–211; BP diastolic 41–137
[2020-06-07] MEDS: DILTIAZEM HCL 125 MG in DEXTROSE 5% WATER 125 ML IV PRN ×3 (00:48→20:39)
[2020-06-07] MEDS: METOCLOPRAMIDE HCL 10MG/2ML VIAL IV SCH ×4 (05:28→23:52)
[2020-06-07] MEDS: LACTULOSE 20G/30ML UDC PO SCH ×3 (05:28→20:38)
[2020-06-07] MEDS: INSULIN LISPRO (HIGH DOSE) 100 UNITS/ML SUBCUT SCH ×4 (05:28→23:53)
[2020-06-07] MEDS: BLOOD SUGAR DIAGNOSTIC STRIP TEST SCH ×4 (05:29→23:45)
[2020-06-07] MEDS: DILTIAZEM HCL 60MG TABLET PO SCH ×4 (05:29→23:45)
[2020-06-07] MEDS: NEBIVOLOL HCL 5 MG TABLET PO SCH (08:00)
[2020-06-07] MEDS: ALLOPURINOL 100 MG TABLET PO SCH (08:44)
[2020-06-07] MEDS: FAMOTIDINE 20MG/2ML VIAL IV SCH (08:44)
[2020-06-07] MEDS: DOCUSATE SODIUM SUGAR FREE 100MG/10ML UDC NG SCH ×2 (08:44→17:52)
[2020-06-07] MEDS: LEVETIRACETAM 500MG PREMIX 100 ML IV SCH ×2 (08:44→20:38)
[2020-06-07] MEDS: IPRATROPIUM BROMIDE (0.02%) 0.5MG/2.5ML NEB HHN SCH ×2 (08:58→20:36)
[2020-06-07 09:20] LABS: CHLORIDE 104 mEq/L (98-107)
[2020-06-07] MEDS: FUROSEMIDE 40MG/4ML VIAL IVP SCH (09:47)
[2020-06-07] MEDS: INSULIN GLARGINE UD 100 UNITS/ML SYR SUBCUT SCH ×2 (09:47→23:57)
[2020-06-07 10:19] LABS: HEMATOCRIT. 38.1 % (36.0-48.0); HEMOGLOBIN. 12.1 g/dL (12.0-16.0); MEAN CORPUSCULAR HEMOGLOBIN 27.3 pg (28.0-32.0); MEAN CORPUSCULAR VOLUME 85.8 fL (81.0-99.0); MEAN PLATELET VOLUME 9.9 fl (7.4-10.4); PLATELET 358 x1000/uL (130-400); RED BLOOD CELL COUNT 4.44 mill/uL (4.2-5.4); RED CELL DISTRIBUTION WIDTH 15.4 % (11.6-14.6)
[2020-06-07] MEDS ORDERED: SODIUM POLYSTYRENE SULFONATE 15 G/60 ML BOT NG NR (11:30)
[2020-06-07] MEDS: NOREPINEPHRINE 32 MG in DEXT 5% WATER 218 ML IV PRN (12:40)
[2020-06-07 12:46] LABS: BG BASE EXCESS 0.1 mmol/L (-2.0-2.0); BG CARBOXYHEMOGLOBIN 0.7 % (0.5-1.5); BG DEOXYHEMOGLOBIN 6.9 % (0.0-5.0); BG FRACTION INSPIRED OXYGEN 40; BG HCO3 ACT 25.1 mmol/L (22.0-26.0); BG METHEMOGLOBIN 0.2 % (0.0-1.5); BG OXYHEMOGLOBIN 92.2 % (94.0-97.0); BG PCO2 42.4 mmHg (35.0-45.0); BG PH 7.391 (7.350-7.450); BG PO2 65.1 mmHg (75.0-100.0); BG SAMPLE SITE RH; BG TOTAL HEMOGLOBIN 11.8 g/dL (12.0-18.0); BG VENT MODE VENT - AC
[2020-06-07] MEDS: ENOXAPARIN 100MG/ML SYR SUBCUT SCH ×2 (13:05→23:51)
[2020-06-07] MEDS: CEFTRIAXONE 1,000 MG in DEXTROSE 5% WATER 50 ML IV SCH (13:05)
[2020-06-07] MEDS: MIDAZOLAM HCL 100 MG in DEXT 5% WATER 80 ML IV PRN (13:19)
[2020-06-07] MEDS ORDERED: NA PHOS,M-B/NA PHOS,DI-BA ENEMA 118ML PR NR (15:00)
[2020-06-07 17:09] LABS: PLATELET ESTIMATE NORMAL
[2020-06-08] VITALS (87 sets, daily range): BP systolic 49–215; BP diastolic 35–132
[2020-06-08] MEDS: IPRATROPIUM BROMIDE (0.02%) 0.5MG/2.5ML NEB HHN SCH ×4 (03:00→20:35)
[2020-06-08] MEDS: DILTIAZEM HCL 125 MG in DEXTROSE 5% WATER 125 ML IV PRN ×2 (05:27→15:22)
[2020-06-08] MEDS: LACTULOSE 20G/30ML UDC PO SCH ×3 (05:28→21:28)
[2020-06-08] MEDS: METOCLOPRAMIDE HCL 10MG/2ML VIAL IV SCH ×3 (05:28→17:49)
[2020-06-08] MEDS: INSULIN LISPRO (HIGH DOSE) 100 UNITS/ML SUBCUT SCH ×3 (05:29→17:52)
[2020-06-08] MEDS: BLOOD SUGAR DIAGNOSTIC STRIP TEST SCH ×3 (05:29→17:53)
[2020-06-08] MEDS: DILTIAZEM HCL 60MG TABLET PO SCH ×3 (05:30→17:49)
[2020-06-08 07:49] LABS: BASOPHILS % 0.9 % (0.0-2.0); EOSINOPHILS % 1.4 % (0.0-5.0); HEMATOCRIT. 34.5 % (36.0-48.0); HEMOGLOBIN. 11.4 g/dL (12.0-16.0); LYMPHOCYTES % 20.5 % (20.0-50.0); MEAN CORPUSCULAR HEMOGLOBIN 28.1 pg (28.0-32.0); MEAN CORPUSCULAR VOLUME 85.4 fL (81.0-99.0); MEAN PLATELET VOLUME 9.8 fl (7.4-10.4); MONOCYTES % 9.3 % (2.0-8.0); NEUTROPHILS % 67.9 % (40.0-76.0); PLATELET 423 x1000/uL (130-400); RED BLOOD CELL COUNT 4.04 mill/uL (4.2-5.4); RED CELL DISTRIBUTION WIDTH 15.7 % (11.6-14.6)
[2020-06-08 08:03] LABS: CHLORIDE 100 mEq/L (98-107)
[2020-06-08] MEDS: DOCUSATE SODIUM SUGAR FREE 100MG/10ML UDC NG SCH ×2 (09:45→17:49)
[2020-06-08] MEDS: FAMOTIDINE 20MG/2ML VIAL IV SCH (09:45)
[2020-06-08] MEDS: FUROSEMIDE 40MG/4ML VIAL IVP SCH (09:45)
[2020-06-08] MEDS: ALLOPURINOL 100 MG TABLET PO SCH (09:46)
[2020-06-08] MEDS: NOREPINEPHRINE 32 MG in DEXT 5% WATER 218 ML IV PRN (09:57)
[2020-06-08] MEDS: LEVETIRACETAM 500MG PREMIX 100 ML IV SCH ×2 (09:58→21:03)
[2020-06-08] MEDS ORDERED: NA PHOS,M-B/NA PHOS,DI-BA ENEMA 118ML PR NR ×2 (10:15→20:00)
[2020-06-08] MEDS: INSULIN GLARGINE UD 100 UNITS/ML SYR SUBCUT SCH ×2 (10:22→21:29)
[2020-06-08] MEDS: FENTANYL CITRATE/PF 2,500 MCG in SODIUM CHLORIDE 0.9% 200 ML IV PRN (10:26)
[2020-06-08] MEDS: MIDAZOLAM HCL 100 MG in DEXT 5% WATER 80 ML IV PRN (12:42)
[2020-06-08] MEDS: ENOXAPARIN 100MG/ML SYR SUBCUT SCH ×2 (13:05→21:28)
[2020-06-08] MEDS: NEBIVOLOL HCL 5 MG TABLET PO SCH (13:05)
[2020-06-08] MEDS: CEFTRIAXONE 1,000 MG in DEXTROSE 5% WATER 50 ML IV SCH (14:51)
[2020-06-08] MEDS: ACETAMINOPHEN 325MG TABLET PO PRN (20:53)
[2020-06-09] VITALS (91 sets, daily range): BP systolic 81–166; BP diastolic 35–103
[2020-06-09] MEDS: METOCLOPRAMIDE HCL 10MG/2ML VIAL IV SCH ×4 (00:02→17:52)
[2020-06-09] MEDS: BLOOD SUGAR DIAGNOSTIC STRIP TEST SCH ×4 (00:03→17:52)
[2020-06-09] MEDS: DILTIAZEM HCL 60MG TABLET PO SCH ×4 (00:03→14:25)
[2020-06-09] MEDS: INSULIN LISPRO (HIGH DOSE) 100 UNITS/ML SUBCUT SCH ×4 (00:04→17:52)
[2020-06-09] MEDS: IPRATROPIUM BROMIDE (0.02%) 0.5MG/2.5ML NEB HHN SCH ×4 (02:53→20:10)
[2020-06-09] MEDS: DILTIAZEM HCL 125 MG in DEXTROSE 5% WATER 125 ML IV PRN ×2 (06:12→19:52)
[2020-06-09] MEDS: LACTULOSE 20G/30ML UDC PO SCH ×3 (06:12→21:37)
[2020-06-09 08:35] LABS: BASOPHILS % 0.2 % (0.0-2.0); EOSINOPHILS % 0.1 % (0.0-5.0); HEMOGLOBIN. 11.3 g/dL (12.0-16.0); LYMPHOCYTES % 9.8 % (20.0-50.0); MEAN CORPUSCULAR HEMOGLOBIN 27.2 pg (28.0-32.0); MEAN CORPUSCULAR VOLUME 84.6 fL (81.0-99.0); MEAN PLATELET VOLUME 9.8 fl (7.4-10.4); MONOCYTES % 6.1 % (2.0-8.0); NEUTROPHILS % 83.8 % (40.0-76.0); PLATELET 435 x1000/uL (130-400); RED BLOOD CELL COUNT 4.14 mill/uL (4.2-5.4); RED CELL DISTRIBUTION WIDTH 15.4 % (11.6-14.6)
[2020-06-09 08:38] LABS: CHLORIDE 98 mEq/L (98-107)
[2020-06-09] MEDS ORDERED: NA PHOS,M-B/NA PHOS,DI-BA ENEMA 118ML PR NR (10:30)
[2020-06-09] MEDS: ALLOPURINOL 100 MG TABLET PO SCH (10:32)
[2020-06-09] MEDS: FUROSEMIDE 40MG/4ML VIAL IVP SCH (10:32)
[2020-06-09] MEDS: ENOXAPARIN 100MG/ML SYR SUBCUT SCH ×2 (10:32→22:11)
[2020-06-09] MEDS: LEVETIRACETAM 500MG PREMIX 100 ML IV SCH ×2 (10:33→21:37)
[2020-06-09] MEDS: FAMOTIDINE 20MG/2ML VIAL IV SCH (10:33)
[2020-06-09] MEDS: NEBIVOLOL HCL 5 MG TABLET PO SCH (10:33)
[2020-06-09] MEDS: DOCUSATE SODIUM SUGAR FREE 100MG/10ML UDC NG SCH ×2 (10:33→17:34)
[2020-06-09] MEDS: INSULIN GLARGINE UD 100 UNITS/ML SYR SUBCUT SCH ×2 (10:39→22:11)
[2020-06-09 12:16] LABS: BG BASE EXCESS 3.4 mmol/L (-2.0-2.0); BG CARBOXYHEMOGLOBIN 0.3 % (0.5-1.5); BG DEOXYHEMOGLOBIN 2.3 % (0.0-5.0); BG FRACTION INSPIRED OXYGEN 100; BG HCO3 ACT 28.8 mmol/L (22.0-26.0); BG METHEMOGLOBIN 0.2 % (0.0-1.5); BG OXYGEN SATURATION 97.7 % (92.0-98.5); BG OXYHEMOGLOBIN 97.2 % (94.0-97.0); BG PCO2 46.9 mmHg (35.0-45.0); BG PH 7.406 (7.350-7.450); BG PO2 98.8 mmHg (75.0-100.0); BG SAMPLE SITE RIGHT RADIAL; BG TOTAL HEMOGLOBIN 12.6 g/dL (12.0-18.0); BG VENT MODE VENT - AC
[2020-06-09] MEDS: CEFTRIAXONE 1,000 MG in DEXTROSE 5% WATER 50 ML IV SCH (14:32)
[2020-06-09] MEDS: SENNOSIDES/DOCUSATE SOD 8.6/50MG TABLET NG SCH (21:37)
[2020-06-10] VITALS (96 sets, daily range): BP systolic 61–153; BP diastolic 32–106
[2020-06-10] MEDS: BLOOD SUGAR DIAGNOSTIC STRIP TEST SCH ×5 (00:07→23:18)
[2020-06-10] MEDS: INSULIN LISPRO (HIGH DOSE) 100 UNITS/ML SUBCUT SCH ×5 (00:14→23:40)
[2020-06-10] MEDS: DILTIAZEM HCL 60MG TABLET PO SCH ×2 (00:14→06:08)
[2020-06-10] MEDS: METOCLOPRAMIDE HCL 10MG/2ML VIAL IV SCH ×5 (00:15→23:37)
[2020-06-10] MEDS: IPRATROPIUM BROMIDE (0.02%) 0.5MG/2.5ML NEB HHN SCH ×4 (00:15→20:42)
[2020-06-10] MEDS: NOREPINEPHRINE 32 MG in DEXT 5% WATER 218 ML IV PRN ×2 (04:37→22:59)
[2020-06-10] MEDS: LACTULOSE 20G/30ML UDC PO SCH ×3 (06:08→22:00)
[2020-06-10 06:48] LABS: BASOPHILS % 0.4 % (0.0-2.0); EOSINOPHILS % 0.1 % (0.0-5.0); HEMATOCRIT. 35.1 % (36.0-48.0); HEMOGLOBIN. 11.4 g/dL (12.0-16.0); LYMPHOCYTES % 8.5 % (20.0-50.0); MEAN CORPUSCULAR HEMOGLOBIN 27.5 pg (28.0-32.0); MEAN PLATELET VOLUME 10.1 fl (7.4-10.4); MONOCYTES % 5.2 % (2.0-8.0); NEUTROPHILS % 85.8 % (40.0-76.0); PLATELET 468 x1000/uL (130-400); RED BLOOD CELL COUNT 4.12 mill/uL (4.2-5.4); RED CELL DISTRIBUTION WIDTH 15.2 % (11.6-14.6)
[2020-06-10 07:01] LABS: CHLORIDE 95 mEq/L (98-107)
[2020-06-10] MEDS: ALLOPURINOL 100 MG TABLET PO SCH (09:00)
[2020-06-10] MEDS ORDERED: NA PHOS,M-B/NA PHOS,DI-BA ENEMA 118ML PR NR (09:00)
[2020-06-10] MEDS: LEVETIRACETAM 500MG PREMIX 100 ML IV SCH ×2 (10:15→22:58)
[2020-06-10] MEDS: INSULIN GLARGINE UD 100 UNITS/ML SYR SUBCUT SCH ×2 (10:17→23:41)
[2020-06-10] MEDS: DOCUSATE SODIUM SUGAR FREE 100MG/10ML UDC NG SCH ×2 (10:18→17:00)
[2020-06-10] MEDS: FAMOTIDINE 20MG/2ML VIAL IV SCH (10:18)
[2020-06-10] MEDS: NEBIVOLOL HCL 5 MG TABLET PO SCH (10:18)
[2020-06-10] MEDS: FUROSEMIDE 40MG/4ML VIAL IVP SCH (10:18)
[2020-06-10] MEDS: ENOXAPARIN 100MG/ML SYR SUBCUT SCH ×2 (10:19→23:36)
[2020-06-10] MEDS: DILTIAZEM HCL 90MG TABLET PO SCH ×3 (12:00→23:17)
[2020-06-10 12:04] LABS: BG BASE EXCESS 3.8 mmol/L (-2.0-2.0); BG CARBOXYHEMOGLOBIN 0.2 % (0.5-1.5); BG DEOXYHEMOGLOBIN 10.3 % (0.0-5.0); BG FRACTION INSPIRED OXYGEN 50; BG HCO3 ACT 28.2 mmol/L (22.0-26.0); BG METHEMOGLOBIN 0.2 % (0.0-1.5); BG OXYGEN SATURATION 89.7 % (92.0-98.5); BG OXYHEMOGLOBIN 89.3 % (94.0-97.0); BG PH 7.445 (7.350-7.450); BG SAMPLE SITE RIGHT RADIAL; BG TOTAL HEMOGLOBIN 11.6 g/dL (12.0-18.0); BG TOTAL RESPIRATORY RATE 16 b/min; BG VENT MODE VENT - AC
[2020-06-10] MEDS: ACETAMINOPHEN 325MG TABLET PO PRN (13:01)
[2020-06-10] MEDS: SENNOSIDES/DOCUSATE SOD 8.6/50MG TABLET NG SCH (21:00)
[2020-06-10] MEDS: CEFEPIME 2,000 MG in DEXT 5% WATER 100 ML IV SCH (23:37)
[2020-06-11] VITALS (96 sets, daily range): BP systolic 89–159; BP diastolic 47–107
[2020-06-11] MEDS: IPRATROPIUM BROMIDE (0.02%) 0.5MG/2.5ML NEB HHN SCH ×4 (02:20→21:08)
[2020-06-11] MEDS: METOCLOPRAMIDE HCL 10MG/2ML VIAL IV SCH ×4 (05:01→23:23)
[2020-06-11] MEDS: DILTIAZEM HCL 90MG TABLET PO SCH ×4 (05:01→23:27)
[2020-06-11] MEDS: LACTULOSE 20G/30ML UDC PO SCH ×3 (05:02→21:03)
[2020-06-11] MEDS: BLOOD SUGAR DIAGNOSTIC STRIP TEST SCH ×4 (05:02→23:23)
[2020-06-11] MEDS: INSULIN LISPRO (HIGH DOSE) 100 UNITS/ML SUBCUT SCH ×4 (05:02→23:26)
[2020-06-11 06:19] LABS: BASOPHILS % 0.5 % (0.0-2.0); EOSINOPHILS % 0.2 % (0.0-5.0); HEMATOCRIT. 34.2 % (36.0-48.0); LYMPHOCYTES % 8.1 % (20.0-50.0); MEAN CORPUSCULAR HEMOGLOBIN 27.1 pg (28.0-32.0); MEAN CORPUSCULAR VOLUME 83.9 fL (81.0-99.0); MEAN PLATELET VOLUME 9.9 fl (7.4-10.4); MONOCYTES % 4.3 % (2.0-8.0); NEUTROPHILS % 86.9 % (40.0-76.0); PLATELET 499 x1000/uL (130-400); RED BLOOD CELL COUNT 4.08 mill/uL (4.2-5.4); RED CELL DISTRIBUTION WIDTH 15.4 % (11.6-14.6)
[2020-06-11 07:06] LABS: CHLORIDE 97 mEq/L (98-107)
[2020-06-11] MEDS: DILTIAZEM HCL 125 MG in DEXTROSE 5% WATER 125 ML IV PRN (07:35)
[2020-06-11] MEDS: FAMOTIDINE 20MG/2ML VIAL IV SCH ×2 (09:00→12:21)
[2020-06-11] MEDS: LEVETIRACETAM 500MG PREMIX 100 ML IV SCH ×2 (10:08→21:02)
[2020-06-11] MEDS: NEBIVOLOL HCL 5 MG TABLET PO SCH (10:09)
[2020-06-11] MEDS: DOCUSATE SODIUM SUGAR FREE 100MG/10ML UDC NG SCH ×2 (10:09→18:15)
[2020-06-11] MEDS: ALLOPURINOL 100 MG TABLET PO SCH (10:09)
[2020-06-11] MEDS: INSULIN GLARGINE UD 100 UNITS/ML SYR SUBCUT SCH ×2 (10:13→21:02)
[2020-06-11 10:33] LABS: BG BASE EXCESS 1.9 mmol/L (-2.0-2.0); BG CARBOXYHEMOGLOBIN 0.2 % (0.5-1.5); BG DEOXYHEMOGLOBIN 5.5 % (0.0-5.0); BG HCO3 ACT 26.4 mmol/L (22.0-26.0); BG METHEMOGLOBIN 0.3 % (0.0-1.5); BG OXYGEN SATURATION 94.5 % (92.0-98.5); BG PCO2 40.9 mmHg (35.0-45.0); BG PH 7.428 (7.350-7.450); BG PO2 70.2 mmHg (75.0-100.0); BG SAMPLE SITE RIGHT RADIAL; BG TOTAL HEMOGLOBIN 12.4 g/dL (12.0-18.0); BG TOTAL RESPIRATORY RATE 16 b/min; BG VENT MODE VENT - AC
[2020-06-11] MEDS ORDERED: POTASSIUM CHLORIDE INJ 40 MEQ in DEXT 5% WATER 250 ML IV NR (11:00)
[2020-06-11] MEDS: CEFEPIME 2,000 MG in DEXT 5% WATER 100 ML IV SCH ×2 (12:14→23:23)
[2020-06-11] MEDS: ENOXAPARIN 100MG/ML SYR SUBCUT SCH ×2 (12:53→21:03)
[2020-06-11] MEDS: NOREPINEPHRINE 32 MG in DEXT 5% WATER 218 ML IV PRN (18:59)
[2020-06-11] MEDS: SENNOSIDES/DOCUSATE SOD 8.6/50MG TABLET NG SCH (21:03)
[2020-06-12] VITALS (89 sets, daily range): BP systolic 83–148; BP diastolic 48–98
[2020-06-12] MEDS: IPRATROPIUM BROMIDE (0.02%) 0.5MG/2.5ML NEB HHN SCH ×4 (02:51→20:50)
[2020-06-12] MEDS: DILTIAZEM HCL 90MG TABLET PO SCH ×4 (05:49→23:29)
[2020-06-12] MEDS: LACTULOSE 20G/30ML UDC PO SCH ×3 (05:49→22:09)
[2020-06-12] MEDS: BLOOD SUGAR DIAGNOSTIC STRIP TEST SCH ×3 (05:49→18:55)
[2020-06-12] MEDS: METOCLOPRAMIDE HCL 10MG/2ML VIAL IV SCH ×4 (05:49→23:22)
[2020-06-12] MEDS: INSULIN LISPRO (HIGH DOSE) 100 UNITS/ML SUBCUT SCH ×3 (05:52→18:00)
[2020-06-12 06:03] LABS: HEMATOCRIT. 31.7 % (36.0-48.0); HEMOGLOBIN. 10.2 g/dL (12.0-16.0); MEAN CORPUSCULAR HEMOGLOBIN 27.6 pg (28.0-32.0); MEAN CORPUSCULAR VOLUME 85.7 fL (81.0-99.0); MEAN PLATELET VOLUME 9.8 fl (7.4-10.4); PLATELET 473 x1000/uL (130-400); RED BLOOD CELL COUNT 3.69 mill/uL (4.2-5.4); RED CELL DISTRIBUTION WIDTH 15.5 % (11.6-14.6)
[2020-06-12 07:06] LABS: CHLORIDE 96 mEq/L (98-107)
[2020-06-12] MEDS: NEBIVOLOL HCL 5 MG TABLET PO SCH (08:00)
[2020-06-12] MEDS: DOCUSATE SODIUM SUGAR FREE 100MG/10ML UDC NG SCH ×2 (09:00→18:13)
[2020-06-12] MEDS: ALLOPURINOL 100 MG TABLET PO SCH (09:00)
[2020-06-12] MEDS: FAMOTIDINE 20MG/2ML VIAL IV SCH (09:05)
[2020-06-12] MEDS: LEVETIRACETAM 500MG PREMIX 100 ML IV SCH ×2 (09:14→20:48)
[2020-06-12] MEDS: INSULIN GLARGINE UD 100 UNITS/ML SYR SUBCUT SCH ×2 (09:22→22:17)
[2020-06-12 09:36] LABS: BG BASE EXCESS 4.9 mmol/L (-2.0-2.0); BG CARBOXYHEMOGLOBIN 0.3 % (0.5-1.5); BG DEOXYHEMOGLOBIN 5.5 % (0.0-5.0); BG FRACTION INSPIRED OXYGEN 90; BG HCO3 ACT 31.1 mmol/L (22.0-26.0); BG OXYGEN SATURATION 94.5 % (92.0-98.5); BG OXYHEMOGLOBIN 94.2 % (94.0-97.0); BG PCO2 53.5 mmHg (35.0-45.0); BG PH 7.382 (7.350-7.450); BG PO2 73.6 mmHg (75.0-100.0); BG SAMPLE SITE RIGHT RADIAL; BG TOTAL HEMOGLOBIN 11.5 g/dL (12.0-18.0); BG VENT MODE VENT - AC
[2020-06-12] MEDS ORDERED: NA PHOS,M-B/NA PHOS,DI-BA ENEMA 118ML PR SCH (10:15)
[2020-06-12 11:06] LABS: PLATELET ESTIMATE INCREASED
[2020-06-12] MEDS: ENOXAPARIN 100MG/ML SYR SUBCUT SCH ×2 (12:09→23:21)
[2020-06-12] MEDS: CEFEPIME 2,000 MG in DEXT 5% WATER 100 ML IV SCH ×2 (12:14→23:22)
[2020-06-12] MEDS: DILTIAZEM HCL 125 MG in DEXTROSE 5% WATER 125 ML IV PRN ×2 (14:39→22:13)
[2020-06-12] MEDS: NOREPINEPHRINE 32 MG in DEXT 5% WATER 218 ML IV PRN (18:10)
[2020-06-12] MEDS: SENNOSIDES/DOCUSATE SOD 8.6/50MG TABLET NG SCH (20:49)
[2020-06-13] VITALS (90 sets, daily range): BP systolic 87–143; BP diastolic 47–93
[2020-06-13] MEDS: INSULIN LISPRO (HIGH DOSE) 100 UNITS/ML SUBCUT SCH ×4 (00:05→18:04)
[2020-06-13] MEDS: IPRATROPIUM BROMIDE (0.02%) 0.5MG/2.5ML NEB HHN SCH ×4 (02:42→20:32)
[2020-06-13 05:08] LABS: CHLORIDE 97 mEq/L (98-107)
[2020-06-13 05:14] LABS: BASOPHILS % 0.3 % (0.0-2.0); EOSINOPHILS % 0.4 % (0.0-5.0); HEMATOCRIT. 31.6 % (36.0-48.0); LYMPHOCYTES % 7.6 % (20.0-50.0); MEAN CORPUSCULAR HEMOGLOBIN 26.9 pg (28.0-32.0); MEAN CORPUSCULAR VOLUME 85.2 fL (81.0-99.0); MONOCYTES % 3.7 % (2.0-8.0); PLATELET 525 x1000/uL (130-400); RED CELL DISTRIBUTION WIDTH 15.7 % (11.6-14.6)
[2020-06-13] MEDS: BLOOD SUGAR DIAGNOSTIC STRIP TEST SCH ×4 (06:13→17:51)
[2020-06-13] MEDS: LACTULOSE 20G/30ML UDC PO SCH ×3 (06:15→21:17)
[2020-06-13] MEDS: METOCLOPRAMIDE HCL 10MG/2ML VIAL IV SCH ×3 (06:16→18:01)
[2020-06-13] MEDS: DILTIAZEM HCL 90MG TABLET PO SCH ×3 (06:17→18:01)
[2020-06-13 07:59] LABS: BG BASE EXCESS 4.1 mmol/L (-2.0-2.0); BG CARBOXYHEMOGLOBIN 0.1 % (0.5-1.5); BG DEOXYHEMOGLOBIN 5.1 % (0.0-5.0); BG FRACTION INSPIRED OXYGEN 90; BG HCO3 ACT 28.4 mmol/L (22.0-26.0); BG METHEMOGLOBIN 0.3 % (0.0-1.5); BG OXYGEN SATURATION 94.9 % (92.0-98.5); BG OXYHEMOGLOBIN 94.5 % (94.0-97.0); BG PCO2 41.6 mmHg (35.0-45.0); BG PH 7.452 (7.350-7.450); BG PO2 68.5 mmHg (75.0-100.0); BG SAMPLE SITE RIGHT RADIAL; BG TOTAL HEMOGLOBIN 11.1 g/dL (12.0-18.0); BG VENT MODE VENT - AC
[2020-06-13] MEDS: NEBIVOLOL HCL 5 MG TABLET PO SCH (08:00)
[2020-06-13] MEDS: FAMOTIDINE 20MG/2ML VIAL IV SCH (08:38)
[2020-06-13] MEDS: DOCUSATE SODIUM SUGAR FREE 100MG/10ML UDC NG SCH ×2 (08:38→17:00)
[2020-06-13] MEDS: DILTIAZEM HCL 125 MG in DEXTROSE 5% WATER 125 ML IV PRN ×2 (08:43→18:02)
[2020-06-13] MEDS: LEVETIRACETAM 500MG PREMIX 100 ML IV SCH ×2 (08:45→21:16)
[2020-06-13] MEDS: ALLOPURINOL 100 MG TABLET PO SCH (08:48)
[2020-06-13] MEDS ORDERED: NA PHOS,M-B/NA PHOS,DI-BA ENEMA 118ML PR SCH (09:00)
[2020-06-13] MEDS: CEFEPIME 2,000 MG in DEXT 5% WATER 100 ML IV SCH (11:27)
[2020-06-13] MEDS: ENOXAPARIN 100MG/ML SYR SUBCUT SCH ×2 (11:29→23:00)
[2020-06-13] MEDS: INSULIN GLARGINE UD 100 UNITS/ML SYR SUBCUT SCH ×2 (11:36→22:00)
[2020-06-13] MEDS: SENNOSIDES/DOCUSATE SOD 8.6/50MG TABLET NG SCH (21:45)
[2020-06-13] MEDS: MEROPENEM 500 MG in SODIUM CHLORIDE 0.9% 50 ML IV SCH (21:45)
[2020-06-14] VITALS (95 sets, daily range): BP systolic 76–147; BP diastolic 30–93
[2020-06-14] MEDS: IPRATROPIUM BROMIDE (0.02%) 0.5MG/2.5ML NEB HHN SCH ×4 (00:04→15:38)
[2020-06-14] MEDS: BLOOD SUGAR DIAGNOSTIC STRIP TEST SCH ×4 (00:40→18:15)
[2020-06-14] MEDS: ACETAMINOPHEN 325MG TABLET PO PRN (00:48)
[2020-06-14] MEDS ORDERED: MIDAZOLAM 100MG/100ML PMX 100 ML IV PRN (01:15)
[2020-06-14] MEDS: INSULIN LISPRO (HIGH DOSE) 100 UNITS/ML SUBCUT SCH ×5 (01:34→22:23)
[2020-06-14] MEDS: METOCLOPRAMIDE HCL 10MG/2ML VIAL IV SCH ×4 (01:36→18:08)
[2020-06-14] MEDS: DILTIAZEM HCL 90MG TABLET PO SCH ×4 (01:36→17:53)
[2020-06-14] MEDS ORDERED: MIDAZOLAM HCL 100 MG in SODIUM CHLORIDE 0.9% 100 ML IV PRN (02:00)
[2020-06-14] MEDS: FENTANYL CITRATE/PF 2,500 MCG in SODIUM CHLORIDE 0.9% 200 ML IV PRN ×2 (02:41→08:33)
[2020-06-14] MEDS: DILTIAZEM HCL 125 MG in DEXTROSE 5% WATER 125 ML IV PRN ×3 (04:57→23:09)
[2020-06-14] MEDS: MEROPENEM 500 MG in SODIUM CHLORIDE 0.9% 50 ML IV SCH ×3 (05:06→21:29)
[2020-06-14] MEDS: LACTULOSE 20G/30ML UDC PO SCH ×3 (05:10→21:29)
[2020-06-14] MEDS: NEBIVOLOL HCL 5 MG TABLET PO SCH (08:00)
[2020-06-14] MEDS: LEVETIRACETAM 500MG PREMIX 100 ML IV SCH ×2 (09:32→20:58)
[2020-06-14] MEDS: DOCUSATE SODIUM SUGAR FREE 100MG/10ML UDC NG SCH ×2 (09:38→16:16)
[2020-06-14] MEDS: FAMOTIDINE 20MG/2ML VIAL IV SCH (09:39)
[2020-06-14] MEDS ORDERED: SORBITOL 70% SOLN 30ML NG SCH (10:15)
[2020-06-14] MEDS: ALLOPURINOL 100 MG TABLET PO SCH (10:20)
[2020-06-14] MEDS: INSULIN GLARGINE UD 100 UNITS/ML SYR SUBCUT SCH ×2 (10:21→22:18)
[2020-06-14 10:28] LABS: BG BASE EXCESS 0.4 mmol/L (-2.0-2.0); BG CARBOXYHEMOGLOBIN 0.4 % (0.5-1.5); BG DEOXYHEMOGLOBIN 17.2 % (0.0-5.0); BG FRACTION INSPIRED OXYGEN 100; BG HCO3 ACT 28.9 mmol/L (22.0-26.0); BG METHEMOGLOBIN 0.5 % (0.0-1.5); BG OXYGEN SATURATION 82.6 % (92.0-98.5); BG OXYHEMOGLOBIN 81.9 % (94.0-97.0); BG PH 7.253 (7.350-7.450); BG PO2 53.2 mmHg (75.0-100.0); BG SAMPLE SITE RIGHT RADIAL; BG TOTAL HEMOGLOBIN 12.1 g/dL (12.0-18.0); BG TOTAL RESPIRATORY RATE 16 b/min; BG VENT MODE VENT - AC
[2020-06-14 10:53] LABS: HEMATOCRIT. 36.4 % (36.0-48.0); MEAN CORPUSCULAR HEMOGLOBIN 26.6 pg (28.0-32.0); MEAN CORPUSCULAR VOLUME 88.1 fL (81.0-99.0); MEAN PLATELET VOLUME 10.4 fl (7.4-10.4); PLATELET 531 x1000/uL (130-400); RED BLOOD CELL COUNT 4.13 mill/uL (4.2-5.4); RED CELL DISTRIBUTION WIDTH 15.9 % (11.6-14.6)
[2020-06-14] MEDS: ENOXAPARIN 100MG/ML SYR SUBCUT SCH ×2 (12:32→22:19)
[2020-06-14 13:13] LABS: NUCLEATED RED BLOOD CELLS 1 /100 WBC; PLATELET ESTIMATE INCREASED
[2020-06-14] MEDS ORDERED: FUROSEMIDE 40MG/4ML VIAL IVP NR (15:45)
[2020-06-14] MEDS: SENNOSIDES/DOCUSATE SOD 8.6/50MG TABLET NG SCH (21:28)
[2020-06-15] VITALS (25 sets, daily range): BP systolic 63–122; BP diastolic 39–78
[2020-06-15] MEDS: BLOOD SUGAR DIAGNOSTIC STRIP TEST SCH
[2020-06-15] MEDS: METOCLOPRAMIDE HCL 10MG/2ML VIAL IV SCH (00:38)
[2020-06-15] MEDS: DILTIAZEM HCL 90MG TABLET PO SCH (00:39)
[2020-06-15] MEDS: FENTANYL CITRATE/PF 2,500 MCG in SODIUM CHLORIDE 0.9% 200 ML IV PRN (01:52)
[2020-06-15] MEDS: IPRATROPIUM BROMIDE (0.02%) 0.5MG/2.5ML NEB HHN SCH ×2 (03:43)
[2020-06-15 06:18] LABS: HEMATOCRIT. 32.2 % (36.0-48.0); HEMOGLOBIN. 9.8 g/dL (12.0-16.0); MEAN CORPUSCULAR HEMOGLOBIN 27.1 pg (28.0-32.0); MEAN CORPUSCULAR VOLUME 89.3 fL (81.0-99.0); MEAN PLATELET VOLUME 10.3 fl (7.4-10.4); PLATELET 494 x1000/uL (130-400); RED CELL DISTRIBUTION WIDTH 16.1 % (11.6-14.6)
[2020-06-15] MEDS ORDERED: NA PHOS,M-B/NA PHOS,DI-BA ENEMA 118ML PR SCH (09:00)
[2020-06-15] MEDS ORDERED: FUROSEMIDE 40MG/4ML VIAL IVP SCH (09:00)
[2020-06-15 14:40] LABS: NUCLEATED RED BLOOD CELLS 3 /100 WBC; PLATELET ESTIMATE INCREASED
== END 2020-06-15 06:32 | disposition expired | DRG 870 ==
LOC: ER 14:13 → MICUSO 17:49 → 5EST 06-01 10:45
PROVIDERS: ADMIT Internal Medicine; ATTEND Internal Medicine
PROC: 5A1955Z Respiratory Ventilation, Greater than 96 Consecutive Hours (ICD-10-PCS; principal; 2020-05-28)
PROC: 0BH18EZ Insertion of Endotracheal Airway into Trachea, Via Natural or Artificial Opening Endoscopic (ICD-10-PCS; 2020-05-28)
PROC: 02HV33Z Insertion of Infusion Device into Superior Vena Cava, Percutaneous Approach (ICD-10-PCS; 2020-05-31)
PROC: B548ZZA Ultrasonography of Superior Vena Cava, Guidance (ICD-10-PCS; 2020-05-31)
PROC: 5A12012 Performance of Cardiac Output, Single, Manual (ICD-10-PCS; 2020-06-03)
DX: A41.59 Other Gram-negative sepsis (principal); J96.01 Acute respiratory failure with hypoxia; J69.0 Pneumonitis due to inhalation of food and vomit; E87.4 Mixed disorder of acid-base balance; I48.20 Chronic atrial fibrillation, unspecified; I42.2 Other hypertrophic cardiomyopathy; I47.2 Ventricular tachycardia; I50.42 Chronic combined systolic (congestive) and diastolic (congestive) heart failure; R17 Unspecified jaundice; R57.9 Shock, unspecified; E72.20 Disorder of urea cycle metabolism, unspecified; R56.9 Unspecified convulsions; D72.820 Lymphocytosis (symptomatic); E11.65 Type 2 diabetes mellitus with hyperglycemia; E78.00 Pure hypercholesterolemia, unspecified; E78.5 Hyperlipidemia, unspecified; I11.0 Hypertensive heart disease with heart failure; I25.10 Atherosclerotic heart disease of native coronary artery without angina pectoris; I49.5 Sick sinus syndrome; I71.9 Aortic aneurysm of unspecified site, without rupture; M16.11 Unilateral primary osteoarthritis, right hip; M48.00 Spinal stenosis, site unspecified; D64.9 Anemia, unspecified; E53.8 Deficiency of other specified B group vitamins; E87.5 Hyperkalemia; E88.09 Other disorders of plasma-protein metabolism, not elsewhere classified; I27.20 Pulmonary hypertension, unspecified; I46.9 Cardiac arrest, cause unspecified; K59.00 Constipation, unspecified; R74.01 Elevation of levels of liver transaminase levels; Z66 Do not resuscitate; Z51.5 Encounter for palliative care; Z20.822 Contact with and (suspected) exposure to COVID-19; Z79.84 Long term (current) use of oral hypoglycemic drugs; Z86.73 Personal history of transient ischemic attack (TIA), and cerebral infarction without residual deficits; Z95.0 Presence of cardiac pacemaker; Z78.1 Physical restraint status; Z79.01 Long term (current) use of anticoagulants; Z79.899 Other long term (current) drug therapy; Z88.1 Allergy status to other antibiotic agents; Z88.2 Allergy status to sulfonamides
CPT/HCPCS: 36415; 36600; 70551; 71045; 71275; 74018; 76937; 80048; 80053; 80061; 80076; 81003; 82140; 82248; 82375; 82607; 82746; 82805; 82962; 83036; 83605; 83735; 83880; 84100; 84145; 84439; 84443; 84478; 84481; 84484; 85025; 85027; 85044; 87070; 87077; 87186; 93005; 93306; 94003; 94640; 99291; C1725; C9113; J0330; J0456; J0692; J0696; J1650; J1815; J1940; J1953; J2185; J2250; J2543; J2704; J2765; J3010; J3420; J3475; J3480; J3490; J7040; J7050; J7060; Q9967; U0003